=== PATIENT | female | born 1935 | race Caucasian/White ===

== ENCOUNTER → 2017-09-16 | Outpatient (CLI) | payer OTHER ==
[~2017-09-16] MED LIST: ASPEC81 PO; CEPH500C2 PO; CLTP PO; FELO5TAB PO; LISI20TA55 PO; MULT-190 PO; OXYC-292 PO; OXYC-57 PO; PARO1TAB27 PO; POTA20TA16 PO; RIVA1TAB4 PO; SIMV10TA2 PO; TPRSR/50 PO; TPRSR50 PO
[2017-09-16 12:36] LABS: HEMATOCRIT 47.9 % (37-47); HEMOGLOBIN 16.2 g/dL (12.0-16.0); MEAN CELL VOLUME 96.8 fL (80-100); MEAN CORPUSCULAR HEMOGLOBIN 32.7 pg (25-34); MEAN CORPUSCULAR HGB CONC 33.8 g/dl (32-36); MEAN PLATELET VOLUME 10.4 fL (7.4-10.4); PLATELET COUNT 174 K/uL (130-400); RED CELL DISTRIBUTION WIDTH CV 13.3 % (11.5-14.5); RED CELL DISTRIBUTION WIDTH SD 47.1 fL (36.4-46.3)
[2017-09-16 12:54] LABS: INR 1.1 (0.9-1.1); PTT PATIENT 27.3 SECONDS (21.0-31.0)
[2017-09-16 13:00] LABS: BLOOD UREA NITROGEN 10 mg/dl (7-18); CREATININE 0.63 mg/dl (0.60-1.20); GLUCOSE 98 mg/dl (70-99)
[2017-09-16 13:01] LABS: CALCIUM 9.3 mg/dl (8.5-10.1); CARBON DIOXIDE 29 mmol/L (21-32); SODIUM 137 mmol/L (136-145)
== END | disposition home or self-care (01) ==
LOC: C.LABBFT 08:17
PROVIDERS: ATTEND Internal Medicine Cardiovascular Disease
DX: Z01.818 Encounter for other preprocedural examination (principal)

== ENCOUNTER 2017-09-20 11:11 | Day surgery (SDC) | payer OTHER ==
[2017-09-20] VITALS (7 sets, daily range): BP systolic 94–140; BP diastolic 51–97; PULSE 62–82; TEMP 36.6–36.7; O2SAT 95–97; Ht 154.9 cm; Wt 83.9 kg
[~2017-09-20] VITALS: Ht 154.9 cm; Wt 83.9 kg
[~2017-09-20 11:11] MED LIST changes: -CEPH500C2 PO; +LACTATED RINGER'S 1000ML 1,000 ML IV SCH; -RIVA1TAB4 PO; -TPRSR/50 PO; -TPRSR50 PO
[2017-09-20] MEDS ORDERED: TPRSR/50 PO (12:00)
[2017-09-20] MEDS ORDERED: RIVA1TAB4 PO (12:00)
[2017-09-20] MEDS ORDERED: BACITRACIN OINT 0.9 GM PKT ONE (12:33)
[2017-09-20] MEDS ORDERED: BACITRACIN 50000 UNIT VIAL ONE (12:33)
[2017-09-20] MEDS ORDERED: LIDOCAINE HCL 1% 20 ML VIAL ONE (12:33)
--- NOTE | 2017-09-20 13:33 | Pre Sedation Assessment ---
Pre Sedation Assessment General Date of Sedation: Sep 20, 2017. Vital Signs Past 12 Hours Date Time Temp Pulse Resp B/P (MAP) Pulse Ox O2 Delivery O2 Flow Rate FiO2 09/20/17 12:00 36.6 82 20 140/97 (111) 97 Room Air Review Cardiovascular: no murmur, + irregularly irregular Lungs: lungs clear Pre-Sedation Airway Assessment Smoking Status: Never Smoker Hx of Sleep Apnea: No Short Thick Neck: No Oral Cavity: Dentures Mallampati Classification: Class II ASA Classification: Class II NPO Status Date of Last Intake of Fluids: Sep 19, 2017 Time of Last Intake of Fluids: 1700 Date of Last Intake of Solids: Sep 19, 2017 Time of Last Intake of Solids: 1700 Procedure Planning Contraindications for Sedation: None Current Medications Reviewed: Yes Notes The planned sedation has been discussed with the patient. Informed Consent was obtained. I have identified the patient, determined the appropriateness of sedation and have assessed the patient immediately prior to the procedure. All medicine(s) and interventions are by my order.
[2017-09-20] MEDS: CEFAZOLIN 2000MG IV PUSH 15 ML IV SCH ×2 (13:38→14:14)
[2017-09-20] MEDS ORDERED: FENTANYL CITRATE INJ 50 MCG/1 ML 2 ML VIAL ONE (13:39)
[2017-09-20] MEDS ORDERED: MIDAZOLAM HCL 1 MG/ML 2ML VIAL ONE ×2 (13:40→14:13)
--- NOTE | 2017-09-20 14:35 | [facility] Operative Report ---
Operative Report Operative Date Sep 20, 2017. Pre-Operative Diagnosis Pacemaker at [facility] Post-Operative Diagnosis same Procedure(s) Performed Dual-chamber replacement Surgeon Dr. Penny Bag Bundler Surgeon(s) none Estimated Blood Loss 10 cc Findings Good lead measurements, atrial fibrillation Specimens Old pacemaker, return to Medtronic Anesthesia local with sedation Complication(s) None Disposition same day surgery Description of Procedure After obtaining informed consent for the procedure, the patient was brought to the laboratory being NPO after midnight. After identification in the laboratory the patient was prepped and draped in the standard sterile manner for a left- sided device replacement. The left prepectoral region was anesthetized with 1% lidocaine local anesthetic and once adequate anesthesia was obtained a 5 cm incision was made through the old implant scar and carried down to the pacemaker generator. The generator was dissected free of tissue and explanted. A bacitracin-soaked sponge(50,000 units in 50 cc normal saline solution) was placed in the pocket. The pacemaker was removed from the leads and connected to an external pacing system. Pacing and sensing characteristics were evaluated in both the atrial and ventricular leads as noted on the implant data sheet. A new pacemaker was attached to the leads and found to be functioning normally. The bacitracin- soaked sponge was removed from the pocket, the pacemaker was placed in the pocket with the leads coiled beneath it after slightly enlarging the pocket to accommodate the slightly larger device. The incision was closed with a running double subcutaneous closure of 3-0 V-lock absorbable suture followed by a running subcuticular skin closure of 4-0 V lock absorbable suture. The patient tolerated the procedure well, there were no complications and the patient was transferred to the same-day surgery unit for observation and subsequent discharge. I attest to the content of the Intraoperative Record and any orders documented therein. Any exceptions are noted below.
--- NOTE | 2017-09-20 14:37 | Post Sedation Assessment ---
Post Sedation Assessment General Date of Sedation Sep 20, 2017. Vital Signs: Vital Signs Past 12 Hours Date Time Temp Pulse Resp B/P (MAP) Pulse Ox O2 Delivery O2 Flow Rate FiO2 09/20/17 12:00 36.6 82 20 140/97 (111) 97 Room Air Post Procedure Recovery Score Activity: (2) Moves 4 extremities * Respiration: (2) Deep breath/cough Circulation: (2) +/-20% PreAnes Value Consciousness: (2) Fully Awake Oxygen Saturation: (2) > 92% On Room Air Post Anesthesia Score: 10 Discharge Sedation Level of Care: Fast Track Phase II Post Sedation Plan On clinical assessment, the patient appears to have tolerated the sedation without complications. Patient is recovering as anticipated. Patient will continue to be monitored by nursing and may be discharged when sedation discharge criteria are met per below protocol. Upon Completions of procedure and additional 15 minutes continue every 5 minute vital signs and the P.A.R. score; then discharge to a Phase I or Fast Track to Phase II per the following guidelines: * Discharge Patient to appropriate Phase II area if PAR is 8 or greater or return to pre- procedure baseline. The post - procedure orders will be as directed. * If PAR score is less than 8 or not return to pre-procedure baseline then patient will follow Phase I monitoring till PAR is reached for Phase II. The Phase I may be done in procedure room or may call to secure a Phase I area. * If naloxone or flumazenil are used for reversal, hold in Phase I for an additional 60 -120 minutes before discharge to Phase II. Please call the Sedation Physician to re-evaluate and complete post-note for discharge to Phase II area. Do NOT discharge from procedure sedation or Phase 1 until post- sedation evaluation note is complete by procedure /sedation MD Sedation Discharge Instructions to be given to the patient at discharge to home.
[2017-09-20] MEDS ORDERED: ACETAMINOPHEN 325 MG TAB PO PRN (14:45)
[2017-09-20] MEDS ORDERED: KETOROLAC TROMETHAMINE 10 MG TAB PO PRN (14:45)
[2017-09-20] MEDS ORDERED: TPRSR50 PO (14:57)
[2017-09-20] MEDS ORDERED: CEPH500C2 PO (14:57)
--- NOTE | 2017-09-20 15:01 | Discharge Instructions ---
Discharge Instructions Date of Service Sep 20, 2017. Admission Reason for Admission: Elective Replacement Indicator Discharge Discharge Diagnosis / Problem: pacemaker replacement Discharge Goals Goal(s): Improve disease control Activity Recommendations Activity Limitations: resume your previous activity . Instructions / Follow-Up Instructions / Follow-Up ACTIVITY RECOMMENDATIONS: * Do not raise affected arm over head for 2 weeks. SPECIAL CARE INSTRUCTIONS: * If bleeding occurs, apply direct pressure to area for 5 minutes. * Call your doctor if you have severe pain, fever, drainage or bleeding at site. * Keep dressing on and dry. * Keep any scheduled doctor's appointment. * Implant Card - hand held device with website information given. SKIN IRRITATION: * You may experience some redness and/or swelling in the area where radiation was administered. If any skin irritation occurs, please contact your family physician. FOLLOW UP VISIT: Dr. Penny , 09/22/2017 10:30 AM Current Hospital Diet Patient's current hospital diet: AHA Diet (Heart Healthy) Discharge Diet Recommended Diet: AHA Diet (Heart Healthy) Procedures Procedures Performed: Dual chamber pacemaker replacement Pending Studies Studies pending at discharge: no Medical Emergencies . Who to Call and When: Medical Emergencies: If at any time you feel your situation is an emergency, please call 911 immediately. . Non-Emergent Contact Non-Emergency issues call your: Primary Care Provider . . "Provider Documentation" section prepared by Gregorio Penny. . VTE Core Measure Inpt VTE Proph given/why not?: Other Anticoagulation
== END 2017-09-20 17:03 | disposition home or self-care (01) ==
LOC: C.ACU 11:11
PROVIDERS: ATTEND Internal Medicine Cardiovascular Disease
DX: Z45.010 Encounter for checking and testing of cardiac pacemaker pulse generator [battery] (principal); E78.00 Pure hypercholesterolemia, unspecified; E05.90 Thyrotoxicosis, unspecified without thyrotoxic crisis or storm; I48.0 Paroxysmal atrial fibrillation; I49.5 Sick sinus syndrome; Z90.49 Acquired absence of other specified parts of digestive tract; Z86.79 Personal history of other diseases of the circulatory system; Z79.01 Long term (current) use of anticoagulants

== ENCOUNTER 2024-05-07 17:46 | Inpatient (IN) ==
[2024-05-07] MEDS: SODIUM CHLORIDE 0.9% 1,000 ML IV SCH (18:49)
[2024-05-07 19:04] LABS: Basophils # (auto) 0.01 K/uL (0.00-0.20); Basophils % (auto) 0.2 %; Hematocrit (blood only) 38.4 % (37.0-47.0); Immature Granulocytes # (auto) 0.03 K/uL (0.01-0.20); Immature Granulocytes % (auto) 0.5 %; Lymphocytes # (auto) 0.77 K/uL (1.20-3.40); Lymphocytes % (auto) 12.8 %; Mean Corpuscular Hemoglobin 32.8 pg (25.0-34.0); Mean Corpuscular Hgb Conc 33.9 g/dL (32.0-36.0); Mean Platelet Volume 9.9 fL (9.4-12.4); Monocytes # (auto) 0.57 K/uL (0.11-0.59); Monocytes % (auto) 9.5 %; Neutrophils # (auto) 4.62 K/uL (1.40-6.50); Platelet Count 108 K/uL (130-400); RDW Standard Deviation 46.6 fL (36.4-46.3); Red Blood Count 3.96 M/uL (4.20-5.40)
[2024-05-07 19:10] LABS: Albumin Globulin Ratio 1.6 (0.9-2); Albumin Level 3.9 gm/dl (3.4-5.0); Bilirubin,Total 1.1 mg/dl (0.2-1.0); Calcium 9.5 mg/dl (8.6-10.3); Creatinine Clr Calc Pharmacy 63.2 ml/min; Est GFR (African American) 95.1 ml/min; Est GFR (Non-African American) 82.1 ml/min; Globulin 2.5 gm/dl (2.5-4.0); Magnesium 1.5 mg/dl (1.7-2.4); Potassium 3.5 mmol/L (3.5-5.1); Total Protein 6.4 gm/dl (6.0-8.3)
[2024-05-07 19:17] LABS: Troponin I High Sensitivity 15.2 pg/ml (0-14)
[2024-05-07 19:26] LABS: Thyroid Stimulating Hormone 0.676 uIu/ml (0.300-4.500)
[2024-05-07 20:29] LABS: Appearance Urine Slightly Cloudy (Clear); Bilirubin Urine Negative (Negative); Blood Urine 1+ (Negative); Color Urine Yellow; Glucose Urine UA Negative (Negative); Ketones Urine 1+ (Negative); Leukocyte Esterase Urine 1+ (Negative); Nitrite Urine Negative (Negative); Protein Urine Negative (Negative); Specific Gravity Urine >= 1.030 (1.000-1.030); Urobilinogen Urine Negative (Negative)
--- NOTE | 2024-05-07 20:48 | Emergency Department Note ---
Impression & Plan Generalized weakness, Late effects of poliomyelitis, COVID-19, Acute UTI (urinary tract infection) ED Provider Note NAME: ADALI VENTURA AGE: 88 SEX: Female INFORMANT: Patient ED PROVIDER(S): Hermes Johnston MD CHIEF COMPLAINT: Generalized weakness PLAN: Disposition: Admitted Outpatient prescription management: none Referral: None MEDICAL DECISION MAKING: Patient presented because of generalized weakness. 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 She was weak on that side but feels that she is at her baseline now. She did note URI symptoms this weekend. BioFire testing was ordered. Laboratory testing was unremarkable including her CBC and chemistry panel. Patient's ECG showed A-fib without acute ischemia. Patient was rate controlled. The patient's chest x-ray was unremarkable. Her urinalysis was concerning for infection. The patient was given IV Rocephin. The patient had a BioFire test performed and unfortunately she has COVID-19. She is not hypoxic. The patient is hemodynamically stable. Given her generalized weakness and inability to get herself up she will need further management in the hospital. [facility] Sachin Louie. Patient was evaluated in the ER and admitted for further management Care/management discussed with: retail pharmacy manager Level of care consideration(s): After review of the information above and other included data, I feel the patient requires escalation of care to admission Triage Nursing notes: reviewed and agree them. Vital Signs: reviewed and remarkable for no significant abnormalities Additional History obtained from: Patient's daughter. She notes no confusion or slurred speech. Chronic Medical/Social Conditions affecting care: Chronic left lower extremity weakness secondary to polio, A-fib, pacemaker Prior/ Outside/ External records reviewed: none Differential Diagnosis: Infection, dehydration, metabolic abnormality, hypo/hyperglycemia, electrolyte disturbance, anemia, hypoxia, cardiac sources, intracerebral event, toxicologic, neurologic, as well as other pathologies. Diagnostics, independently interpreted by me: ECG: Twelve-lead ECG reveals A-fib with paced beats at [address] No ST elevation. Cardiac Monitoring: Cardiac monitoring ordered by me: The patient was placed on continuous cardiac monitoring and observed. It revealed atrial fibrillation at 72 bpm with paced beats. Medical decision rules: none Imaging studies: Chest x-ray. Findings: A chest x-ray was performed and revealed no pneumothorax, effusion, infiltrate, pulmonary edema, free air under the diaphragm, or wide mediastinum. Cardiac pacemaker in place. Mild cardiomegaly. HPI: 88 year old Female arrives for evaluation of generalized weakness. This started today and is progressing. Daughter is present helps with history. She notes no slurred speech or confusion. Patient became progressively more weak today. She was unable to get up. She fell off the toilet but did not suffer any injury. She does have chronic left lower extremity weakness secondary to polio. The patient also notes the following associated symptoms,chills,cough and congestion over the last 2 days. The patient has found no relieving factors. Current pain is rated as 0/10. Pt denies LOC, headache, fevers, diaphoresis, visual changes, neck pain, chest pain, breathing difficulties, nausea, vomiting, abdominal pain, back pain, melena, hematochezia, urinary symptoms, numbness, lymphadenopathy, rash, or other complaints.. PAST MEDICAL HISTORY: See Below, UTI, polio, A-fib PAST SURGICAL HISTORY: See Below, pacemaker SOCIAL HISTORY: See Below, retired HOME MEDICATIONS: See Below ALLERGIES: See Below VITALS: See Below PHYSICAL EXAMINATION: GENERAL: Awake, alert, well-appearing, in no distress HENT: Normocephalic, atraumatic. Oropharynx unremarkable. EYES: Normal conjunctiva. Sclera non-icteric. PERRLA. EOMI. NECK: Inspection normal. Non-tender. Supple. No nuchal rigidity. FROM. No masses. RESPIRATORY: Clear to auscultation. No wheezes. No rales. Normal respiratory effort. CARDIAC: Normal rate. Irregular rhythm. No murmurs. No rubs. Upper extremities warm and well perfused. The left lower extremity feels cooler to the touch and is mildly cyanotic. There is muscular atrophy present there as well. Daughter states that is normal in appearance for her. Pulses are equal bilaterally in the lower extremities, dorsalis pedis. No JVD. GI: Soft, non-distended. No tenderness to palpation. No rebound or guarding. No masses. RECTAL: Deferred. MUSCULOSKELETAL: Atraumatic. Chest examination reveals no tenderness. The back is symmetrical on inspection without obvious abnormality. There is no CVA tenderness to palpation. No joint edema. LOWER EXTREMITIES: Calves are equal size bilaterally and non-tender. No edema. Chronic venous discoloration as well as some mild cyanosis on the left.. NEURO: Normal sensorium. No sensory or motor deficits noted. SKIN: No rash or jaundice noted. PROCEDURES: none CRITICAL CARE: none OBSERVATION NOTE: none Past Med/Surg History Problem List (Updated 05/07/24 @ 22:28 by Hermes Johnston MD) Acute UTI (urinary tract infection) (Acute) COVID-19 (Acute) Generalized weakness (Acute) Sacroiliitis Presence of cardiac pacemaker Hypertension Dyslipidemia Atrial fibrillation Gastritis (Acute) Gastritis (Acute) Gastritis (Acute) Late effects of poliomyelitis (Chronic Unknown) Vertigo (Acute) Encounter for pre-operative examination Medical History (Updated 05/07/24 @ 22:28 by Hermes Johnston MD) Osteoporosis Hyperlipidemia Polio TODDLER Hearing deficit hearing aids Atrial fibrillation DX [address] penny Pacemaker medtronic 2001 > [facility] > FOR A-FIB, LAST CHECKED fall FOLLOWS WITH [facility] FOR CARDIOLOGY Hypertension Surgical History History of colonoscopy History of tooth extraction History of total hip arthroplasty RIGHT History of total shoulder replacement RIGHT Social History Smoking Status: Never smoker Second Hand Exposure: No; Do You Dip or Chew Tobacco: No; Hx Alcohol Use: No Hx Substance Use: No Preferred Language: Lithuanian Communication Ability: Effective Visual Impairment: No Limitations Audiology Doctor Required: No Beliefs That Will Affect Care: None Current Living Situation: Family Feels Safe at Home: Yes Assistive Devices: Cane, Glasses, Hearing Aid - Bilateral and Walker Allergies Allergies Allergy/AdvReac Type Severity Reaction Status Date / Time No Known Allergies Allergy Verified 09/27/22 11:48 Home Meds Home Medications Medication Instructions Recorded Confirmed alendronate 70 mg tablet 70 mg PO WEEKLY 04/23/19 09/27/22 calcium carbonate (Calcium 600) 600 mg PO BID 07/20/19 09/27/22 paroxetine HCl 20 mg tablet 20 mg PO DAILY 05/28/20 09/27/22 Previous Rx's Medication Instructions Recorded lisinopril 20 1 tab PO QAM #90 tabs 01/19/22 mg-hydrochlorothiazide 25 mg tablet metoprolol succinate 100 mg 100 mg PO QAM #90 tabs 06/27/23 tablet,extended release 24 hr rivaroxaban 20 mg tablet 20 mg PO QAM #90 tabs 12/15/23 simvastatin 10 mg tablet 10 mg PO QAM #90 tabs 12/15/23 potassium chloride 20 mEq 20 meq PO QAM #90 tabs 01/22/24 tablet,extended release Results & Data (ED) Vital Signs Vital Signs - 24 hr 05/07/24 17:54 05/07/24 18:29 05/07/24 20:00 Temperature 37.3 C Temperature Source Oral Pulse Rate 87 87 Pulse Rate [Finger] 73 Respiratory Rate 14 18 Blood Pressure 107/84 Blood Pressure [Right Arm] 132/72 Blood Pressure Mean 91 Blood Pressure Mean [Right Arm] 92 Pulse Oximetry 96 96 Oxygen Delivery Method Room Air Room Air Sepsis Recent Fever Within 48 Hours No Sepsis New/Unexplained Change in Mental Status No Sepsis Action Taken by Nursing No Action Required Laboratory Data 05/07/24 18:22 05/07/24 18:22 Lab Results 05/07/24 05/07/24 Range/Units 18:22 20:15 WBC 6.00 (4.8-10.8) K/ul RBC 3.96 L (4.20-5.40) M/uL Hgb 13.0 (12.0-16.0) g/dl Hct 38.4 (37.0-47.0) % MCV 97.0 (80.0-100.0) fL MCH 32.8 (25.0-34.0) pg MCHC 33.9 (32.0-36.0) g/dL RDW Std Deviation 46.6 H (36.4-46.3) fL RDW Coeff of Anibal 13.0 (11.5-14.5) % Plt Count 108 L (130-400) K/uL MPV 9.9 (9.4-12.4) fL Immature Gran % (Auto) 0.5 % Neut % (Auto) 77.0 % Lymph % (Auto) 12.8 % [place] % (Auto) 9.5 % Eos % (Auto) 0.0 % Baso % (Auto) 0.2 % Neut # (Auto) 4.62 (1.40-6.50) K/uL Lymph # (Auto) 0.77 L (1.20-3.40) K/uL [place] # (Auto) 0.57 (0.11-0.59) K/uL Eos # (Auto) 0.00 (0.00-0.50) K/uL Baso # (Auto) 0.01 (0.00-0.20) K/uL Immature Gran # (Auto) 0.03 (0.01-0.20) K/uL Sodium 139 (136-145) mmol/L Potassium 3.5 (3.5-5.1) mmol/L Chloride 102 (98-107) mmol/L Carbon Dioxide 27 (21-32) mmol/L Anion Gap 10 (3-11) BUN 25 H (6-23) mg/dl Creatinine 0.61 (0.6-1.2) mg/dl Est Cr Clr Drug Dosing 63.2 ml/min Est GFR ( Amer) 95.1 ml/min Est GFR (Non-Af Amer) 82.1 ml/min BUN/Creatinine Ratio 41.0 H (10-20) Glucose 121 H (70-99(Fasting)) mg/dl Calcium 9.5 (8.6-10.3) mg/dl Magnesium 1.5 L (1.7-2.4) mg/dl Total Bilirubin 1.1 H (0.2-1.0) mg/dl AST 38 (13-39) U/L ALT 19 (7-52) U/L Alkaline Phosphatase 41 (34-104) U/L Troponin I High Sens 15.2 H (0-14) pg/ml Total Protein 6.4 (6.0-8.3) gm/dl Albumin 3.9 (3.4-5.0) gm/dl Globulin 2.5 (2.5-4.0) gm/dl Albumin/Globulin Ratio 1.6 (0.9-2) TSH 0.676 (0.300-4.500) uIu/ml Urine Color Yellow Urine Appearance Slightly Cloudy (Clear) Urine pH 6.0 (4.5-7.5) Ur Specific [place] >= 1.030 (1.000-1.030) Urine Protein Negative (Negative) Urine Glucose (UA) Negative (Negative) Urine Ketones 1+ H (Negative) Urine Blood 1+ H (Negative) Urine Nitrite Negative (Negative) Urine Bilirubin Negative (Negative) Urine Urobilinogen Negative (Negative) Ur Leukocyte Esterase 1+ H (Negative) Urine RBC 0-2 (0-2) /hpf Urine WBC 6-10 H (0-5) /hpf Ur Epithelial Cells 0-2 (0-2) /hpf Ur Renal Epithelial Cell Present A (None Presnt) /lpf Urine Bacteria 2+ H (None Seen) Adenovirus (PCR) Not Detected (NotDetected) B. pertussis DNA (PCR) Not Detected (NotDetected) B.parapertussis DNA PCR Not Detected (NotDetected) C. pneumoniae DNA (PCR) Not Detected (NotDetected) Coronavirus OC43 (PCR) Not Detected (NotDetected) Coronavirus HKU1 (PCR) Not Detected (NotDetected) Coronavirus 229E (PCR) Not Detected (NotDetected) SARS-CoV-2 (PCR) DETECTED A (NotDetected) Coronavirus NL63 (PCR) Not Detected (NotDetected) Human Metapneumovir PCR Not Detected (NotDetected) Influenza Type A (PCR) Not Detected (NotDetected) Influenza Type B (PCR) Not Detected (NotDetected) M. pneumoniae (PCR) Not Detected (NotDetected) Parainfluenza 1 (PCR) Not Detected (NotDetected) Parainfluenza 2 (PCR) Not Detected (NotDetected) Parainfluenza 3 (PCR) Not Detected (NotDetected) Parainfluenza 4 (PCR) Not Detected (NotDetected) RSV (PCR) Not Detected (NotDetected) Entero/Rhino (PCR) Not Detected (NotDetected) Administered Medications Discontinued Medications Sodium Chloride (Nss) 1,000 mls @ 125 mls/hr IV .Q8H SHANTA Stop: 05/08/24 02:44 Last Admin: 05/07/24 18:49 Dose: 125 mls/hr Documented By: LUCIE Ceftriaxone Sodium (Rocephin) 2,000 mg in 50 mls @ 100 mls/hr IV NOW STA Stop: 05/07/24 21:49 Last Infusion: 05/07/24 22:07 Dose: Infused Documented By: Admin: 05/07/24 21:34 Dose: 100 mls/hr Documented By: LUCIE Discharge Plan Visit Data Chief Complaint: Weakness ED Provider: Hermes Johnston Discharge Problem: Generalized weakness, Late effects of poliomyelitis, COVID-19, Acute UTI (urinary tract infection) Forms Stand Alone Forms: [facility] Prescriptions Prescriptions: No Action lisinopril-hydrochlorothiazide 20-25 mg tablet 1 tab PO QAM Qty: 90 3RF metoprolol succinate 100 mg tablet extended release 24 hr 100 mg PO QAM Qty: 90 3RF rivaroxaban 20 mg tablet 20 mg PO QAM Qty: 90 3RF simvastatin 10 mg tablet 10 mg PO QAM Qty: 90 3RF potassium chloride 20 mEq tablet extended release 20 meq PO QAM Qty: 90 3RF alendronate 70 mg tablet 70 mg PO WEEKLY Rx Instructions: TUESDAY paroxetine HCl 20 mg tablet 20 mg PO DAILY calcium carbonate [Calcium 600] 600 mg calcium (1,500 mg) Tablet 600 mg PO BID Referrals Referrals: Gisella Quezada DO [Primary Care Provider] -
[2024-05-07 21:12] LABS: Adenovirus PCR Not Detected (NotDetected); Bordetella parapertussis PCR Not Detected (NotDetected); Bordetella pertussis PCR Not Detected (NotDetected); Chlamydia pneumoniae PCR Not Detected (NotDetected); Coronavirus 229E PCR Not Detected (NotDetected); Coronavirus CoV-2 (COVID19)PCR DETECTED (NotDetected); Coronavirus HKU1 PCR Not Detected (NotDetected); Coronavirus NL63 PCR Not Detected (NotDetected); Coronavirus OC43PCR Not Detected (NotDetected); Human Metapneumovirus PCR Not Detected (NotDetected); Influenza A PCR Not Detected (NotDetected); Influenza B PCR Not Detected (NotDetected); Mycoplasma pneumoniae PCR Not Detected (NotDetected); Parainfluenza Virus 1 PCR Not Detected (NotDetected); Parainfluenza Virus 2 PCR Not Detected (NotDetected); Parainfluenza Virus 3 PCR Not Detected (NotDetected); Parainfluenza Virus 4 PCR Not Detected (NotDetected); Respiratory Syncytial VirusPCR Not Detected (NotDetected); Rhinovirus/Enterovirus PCR Not Detected (NotDetected)
[2024-05-07 21:16] LABS: Epithelial Cell Urine 0-2 /hpf (0-2)
[2024-05-07 21:17] LABS: Renal Epithelial Cells Urine Present /lpf (None Presnt)
[2024-05-07 21:18] LABS: Bacteria Urine 2+ (None Seen); RBC Urine 0-2 /hpf (0-2)
[2024-05-07] MEDS: cefTRIAXone SODIUM 2,000 MG/50 ML BAG IV STA (21:34)
[2024-05-07] MEDS: MAGNESIUM SULFATE / D5W 1 GM/100 ML BAG IV SCH (22:39)
[2024-05-07] MEDS: SODIUM CHLORIDE 0.9% 1,000 ML IV ONE (22:40)
--- NOTE | 2024-05-07 23:07 | History & Physical Report ---
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 ISS BG goal 1 10-1 40, carb count coverage PT OT eval DVT prophylaxis. Xarelto DNR Text document was generated using [employer] [place] voice recognition software. It may contain grammatical or spelling errors. Kindly contact undersigned for clarification of any documentation item in question. History of Present Illness Chief Complaint: Weakness Primary Care Provider: Gisella Quezada DO History obtained from patient and records. Medical history significant for SSS status post PPM on Xarelto, hypertension, hyperlipidemia, DM2 on oral medications, melanoma as per records, anxiety disorder, postpolio syndrome. Last confinement 2009 under Orthopedics service for elective right hip surgery. Patient seen at the ER 2 weeks ago for left foot cellulitis. Improved on doxycycline Rx. Few days history of generalized weakness. Dry cough symptoms without chest pain or SOB. No abdominal pain or dysuria symptoms. Not sure about sick contacts. IV ceftriaxone administered at the ER for UTI. Lowest SBP of 90s documented at the ER. Medical History as above Surgical History : Dental surgery, hip surgery, shoulder surgery, PPM, FUENTES Family History : Liver cancer, DM, heart disease Personal/Social history : Non-smoker, no EtOH intake Allergies Allergy/AdvReac Type Severity Reaction Status Date / Time No Known Allergies Allergy Verified 09/27/22 11:48 Home Medications Medication Instructions Recorded Confirmed Type alendronate 70 mg tablet 70 mg PO WEEKLY 04/23/19 05/07/24 History calcium carbonate (Calcium 600) 600 mg PO BID 07/20/19 05/07/24 History paroxetine HCl 20 mg tablet 20 mg PO DAILY 05/28/20 05/07/24 History lisinopril 20 1 tab PO QAM #90 tabs 01/19/22 05/07/24 Rx mg-hydrochlorothiazide 25 mg tablet metoprolol succinate 100 mg 100 mg PO QAM #90 tabs 06/27/23 05/07/24 Rx tablet,extended release 24 hr rivaroxaban 20 mg tablet 20 mg PO QAM #90 tabs 12/15/23 05/07/24 Rx potassium chloride 20 mEq 20 meq PO QAM #90 tabs 01/22/24 05/07/24 Rx tablet,extended release simvastatin 10 mg tablet 10 mg PO 1XD 05/07/24 05/07/24 History Past Med/Surg History Problem List (Updated 05/08/24 @ 07:38 by Sachin Louie MD) Hypotension Acute UTI (urinary tract infection) (Acute) COVID-19 (Acute) Generalized weakness (Acute) Sacroiliitis Presence of cardiac pacemaker Hypertension Dyslipidemia Atrial fibrillation Gastritis (Acute) Gastritis (Acute) Gastritis (Acute) Late effects of poliomyelitis (Chronic Unknown) Vertigo (Acute) Encounter for pre-operative examination Medical History (Updated 05/08/24 @ 07:38 by Sachin Louie MD) Osteoporosis Hyperlipidemia Polio TODDLER Hearing deficit hearing aids Atrial fibrillation DX [address] penny Pacemaker medtronic 2001 > [facility] > FOR A-FIB, LAST CHECKED fall FOLLOWS WITH [facility] FOR CARDIOLOGY Hypertension Surgical History History of colonoscopy History of tooth extraction History of total hip arthroplasty RIGHT History of total shoulder replacement RIGHT Social History Smoking Status: Never smoker Second Hand Exposure: No; Do You Dip or Chew Tobacco: No; Hx Alcohol Use: No Hx Substance Use: No Preferred Language: Chinese Communication Ability: Effective Visual Impairment: No Limitations Career Development Director Required: No Beliefs That Will Affect Care: None Current Living Situation: Family Feels Safe at Home: Yes Safety Concerns: Feels Safe At This Time Assistive Devices: Cane, Glasses, Hearing Aid - Bilateral and Walker Review of Systems Review of Systems: As per HPI, all other systems reviewed and negative Physical Exam Physical Exam: GENERAL: Comfortable, pleasant, obese, slightly hard of hearing, no respiratory distress SKIN: Normal color, warm HEENT: [place] palpebral conjunctivae, no ptosis, dry buccal mucosa NECK : Supple, no tenderness CHEST : CTA, no tenderness HEART : Irregular, no obvious murmurs ABDOMEN: Some distention, nontender EXTREMITIES : Minimal LE swelling, no LE tenderness, no other conspicuous deformities noted NEUROLOGIC : Coherent, no facial asymmetry, slightly hard of hearing, gait and stance not assessed Results & Data Results & Data Vital Signs (Past 12 Hours) Vital Signs Temp Pulse Pulse Resp BP BP Pulse Ox 05/07/24 22:26 71 05/07/24 22:00 78 18 102/54 L 96 05/07/24 20:00 73 18 132/72 96 05/07/24 18:29 87 05/07/24 17:54 37.3 C 87 14 107/84 96 O2 Del Method 05/07/24 22:26 05/07/24 22:00 Room Air 05/07/24 20:00 Room Air 05/07/24 18:29 05/07/24 17:54 Room Air Laboratory Results Laboratory Results WBC 6.00 K/ul (4.8-10.8) 05/07/24 18:22 RBC 3.96 M/uL (4.20-5.40) L 05/07/24 18:22 Hgb 13.0 g/dl (12.0-16.0) 05/07/24 18:22 Hct 38.4 % (37.0-47.0) 05/07/24 18:22 MCV 97.0 fL (80.0-100.0) 05/07/24 18:22 MCH 32.8 pg (25.0-34.0) 05/07/24 18:22 MCHC 33.9 g/dL (32.0-36.0) 05/07/24 18:22 RDW Std Deviation 46.6 fL (36.4-46.3) H 05/07/24 18:22 RDW Coeff of Anibal 13.0 % (11.5-14.5) 05/07/24 18:22 Plt Count 108 K/uL (130-400) L 05/07/24 18:22 MPV 9.9 fL (9.4-12.4) 05/07/24 18:22 Immature Gran % (Auto) 0.5 % 05/07/24 18:22 Neut % (Auto) 77.0 % 05/07/24 18:22 Lymph % (Auto) 12.8 % 05/07/24 18:22 [place] % (Auto) 9.5 % 05/07/24 18:22 Eos % (Auto) 0.0 % 05/07/24 18:22 Baso % (Auto) 0.2 % 05/07/24 18:22 Neut # (Auto) 4.62 K/uL (1.40-6.50) 05/07/24 18:22 Lymph # (Auto) 0.77 K/uL (1.20-3.40) L 05/07/24 18:22 [place] # (Auto) 0.57 K/uL (0.11-0.59) 05/07/24 18:22 Eos # (Auto) 0.00 K/uL (0.00-0.50) 05/07/24 18:22 Baso # (Auto) 0.01 K/uL (0.00-0.20) 05/07/24 18:22 Immature Gran # (Auto) 0.03 K/uL (0.01-0.20) 05/07/24 18:22 Sodium 139 mmol/L (136-145) 05/07/24 18:22 Potassium 3.5 mmol/L (3.5-5.1) 05/07/24 18:22 Chloride 102 mmol/L (98-107) 05/07/24 18:22 Carbon Dioxide 27 mmol/L (21-32) 05/07/24 18:22 Anion Gap 10 (3-11) 05/07/24 18:22 BUN 25 mg/dl (6-23) H 05/07/24 18:22 Creatinine 0.61 mg/dl (0.6-1.2) 05/07/24 18:22 Est Cr Clr Drug Dosing 63.2 ml/min 05/07/24 18:22 Est GFR ( Amer) 95.1 ml/min 05/07/24 18:22 Est GFR (Non-Af Amer) 82.1 ml/min 05/07/24 18:22 BUN/Creatinine Ratio 41.0 (10-20) H 05/07/24 18:22 Glucose 121 mg/dl (70-99(Fasting)) H 05/07/24 18:22 Calcium 9.5 mg/dl (8.6-10.3) 05/07/24 18:22 Magnesium 1.5 mg/dl (1.7-2.4) L 05/07/24 18:22 Total Bilirubin 1.1 mg/dl (0.2-1.0) H 05/07/24 18:22 AST 38 U/L (13-39) 05/07/24 18:22 ALT 19 U/L (7-52) 05/07/24 18:22 Alkaline Phosphatase 41 U/L (34-104) 05/07/24 18:22 Troponin I High Sens 15.2 pg/ml (0-14) H 05/07/24 18:22 Total Protein 6.4 gm/dl (6.0-8.3) 05/07/24 18:22 Albumin 3.9 gm/dl (3.4-5.0) 05/07/24 18:22 Globulin 2.5 gm/dl (2.5-4.0) 05/07/24 18:22 Albumin/Globulin Ratio 1.6 (0.9-2) 05/07/24 18:22 TSH 0.676 uIu/ml (0.300-4.500) 05/07/24 18:22 Urine Color Yellow 05/07/24 20:15 Urine Appearance Slightly Cloudy (Clear) 05/07/24 20:15 Urine pH 6.0 (4.5-7.5) 05/07/24 20:15 Ur Specific [place] >= 1.030 (1.000-1.030) 05/07/24 20:15 Urine Protein Negative (Negative) 05/07/24 20:15 Urine Glucose (UA) Negative (Negative) 05/07/24 20:15 Urine Ketones 1+ (Negative) H 05/07/24 20:15 Urine Blood 1+ (Negative) H 05/07/24 20:15 Urine Nitrite Negative (Negative) 05/07/24 20:15 Urine Bilirubin Negative (Negative) 05/07/24 20:15 Urine Urobilinogen Negative (Negative) 05/07/24 20:15 Ur Leukocyte Esterase 1+ (Negative) H 05/07/24 20:15 Urine RBC 0-2 /hpf (0-2) 05/07/24 20:15 Urine WBC 6-10 /hpf (0-5) H 05/07/24 20:15 Ur Epithelial Cells 0-2 /hpf (0-2) 05/07/24 20:15 Ur Renal Epithelial Cell Present /lpf (None Presnt) A 05/07/24 20:15 Urine Bacteria 2+ (None Seen) H 05/07/24 20:15 Adenovirus (PCR) Not Detected (NotDetected) 05/07/24 20:15 B. pertussis DNA (PCR) Not Detected (NotDetected) 05/07/24 20:15 B.parapertussis DNA PCR Not Detected (NotDetected) 05/07/24 20:15 C. pneumoniae DNA (PCR) Not Detected (NotDetected) 05/07/24 20:15 Coronavirus OC43 (PCR) Not Detected (NotDetected) 05/07/24 20:15 Coronavirus HKU1 (PCR) Not Detected (NotDetected) 05/07/24 20:15 Coronavirus 229E (PCR) Not Detected (NotDetected) 05/07/24 20:15 SARS-CoV-2 (PCR) DETECTED (NotDetected) A 05/07/24 20:15 Coronavirus NL63 (PCR) Not Detected (NotDetected) 05/07/24 20:15 Human Metapneumovir PCR Not Detected (NotDetected) 05/07/24 20:15 Influenza Type A (PCR) Not Detected (NotDetected) 05/07/24 20:15 Influenza Type B (PCR) Not Detected (NotDetected) 05/07/24 20:15 M. pneumoniae (PCR) Not Detected (NotDetected) 05/07/24 20:15 Parainfluenza 1 (PCR) Not Detected (NotDetected) 05/07/24 20:15 Parainfluenza 2 (PCR) Not Detected (NotDetected) 05/07/24 20:15 Parainfluenza 3 (PCR) Not Detected (NotDetected) 05/07/24 20:15 Parainfluenza 4 (PCR) Not Detected (NotDetected) 05/07/24 20:15 RSV (PCR) Not Detected (NotDetected) 05/07/24 20:15 Entero/Rhino (PCR) Not Detected (NotDetected) 05/07/24 20:15 Diagnostic Findings Chest x-ray as per my interpretation cardiomegaly, atelectasis EKG as per my interpretation : Rate 75, A-fib, LAD, LAFB, septal infarct, nonspecific T wave abnormalities, PVCs
[2024-05-07] MEDS ORDERED: PROMETHAZINE 6.25 MG/50.25 ML BAG IV PRN (23:10)
[2024-05-08] MEDS ORDERED: GLUCOSE 10 TAB/TUBE PO PRN (00:21)
[2024-05-08] MEDS ORDERED: GLUCOSE 40% GEL 15 GM TUBE PO PRN (00:21)
[2024-05-08] MEDS ORDERED: DEXTROSE 50% 50 ML SYRINGE IV PRN (00:21)
[2024-05-08] MEDS ORDERED: GLUCAGON FOR INJ 1 MG VIAL SQ PRN (00:21)
[2024-05-08] MEDS ORDERED: CARBOHYDRATES FOR HYPOGLYCEMIA PO PRN (00:21)
[2024-05-08] MEDS: INSULIN ASPART PER UNIT CHARGE SC SCH (00:45)
[2024-05-08] MEDS: NSS + 20MEQ KCL 20 MEQ/1,000 ML BAG IV ONE (04:08)
--- OUTSIDE RECORDS SUMMARY | 2024-05-08 04:46 | External Medical Summary | Summary of Care ---
Author Name Unknown Organization [facility] Address [address] [place] [address] Phone [phone] Care Team Providers Care Home Agent Name Role Phone MahadGisella martinez Jeremiah QUEEN Primary Care Provider [phone] Reason for Visit * Reason Onset Date Comments MyCode Nonconsent - Not interested at this time 04/30/2024 Encounter Details Date Type Department Care Team (Late st Contact Info) Description 04/30/2024 Orders Only Outcomes Research Department [address] [place] [address] Katherin Wallace CHRA MyCode Nonconsent Documentation Allergies No known active allergiesdocumented as of this encounter (statuses as of 04/30/2024) Medications Medication Sig Dispensed Refills Start Date End Date Status CALCIUM 600 TABS 600 MG OR 1 bid with food 06/09/2001 Active PRINZIDE TABS 20-25 MG OR 1 daily 06/09/2001 Active SIMVASTATIN 10 MG PO TABSIndications:Dysl ipidemia, goal LDL below 160 one tab by mouth daily 90 3 03/27/2007 Active XARELTO 20 MG PO TABS 1 TABLET DAILY 30 Tab 5 12/14/2013 Active KLOR-CON M20 20 MEQ TBCR 07/27/2015 Active metoprolol succinate XL (TOPROL XL) 100 MG TB24 Take 1 Tablet by mouth in the morning. Active Sennosides-Docusate Sodium 8.6-50 MG Oral Tablet (Senexon-S) Take one to two tablets twice daily as needed 180 Tab 06/11/2021 Active PARoxetine HCl 20 MG Oral Tablet (pAXil)Indications:A nxiety Take 1 Tablet by mouth in the morning. 90 Tablet 3 07/08/2023 Active Lisinopril-hydroCHLO ROthiazide 20-25 MG Oral Tablet Take 1 Tablet by mouth in the morning. in the morning.. 90 Tablet 5 07/30/2023 Active Alendronate Sodium 70 MG Oral Tablet (Fosamax)Indications :Age related osteoporosis, unspecified pathological fracture presence TAKE 1 TABLET ONCE WEEKLY WITH 8 OUNCES OF WATER 30 MINUTES BEFORE FIRST MEAL OF THE DAY. REMAIN UPRIGHT FOR 30 MINUTES AFTER TAKING TABLET 12 Tablet 1 03/04/2024 Active Doxycycline Hyclate 100 MG Oral CapsuleIndications:S pider bite wound, accidental or unintentional, sequela Take 1 Capsule by mouth in the morning and 1 Capsule before bedtime. Do all this for 7 days. Until gone.. 14 Capsule 04/30/2024 05/07/2024 Active documented as of this encounter (statuses as of 04/30/2024) Active Problems Problem Noted Date Diagnosed Date Type 2 diabetes mellitus wit h hemoglobin A1c goal of less than 7.0% 07/08/2023 Osteoporosis 07/08/2023 Anxiety 07/08/2023 Polio osteopathy of lower leg, left 07/08/2023 Permanent atrial fibrillation 07/08/2023 History of colon polyps 11/01/2018 HTN, GOAL BELOW 140/90 06/30/2009 Overview: Modified per HTN protocol #16. ADVANCE DIRECTIVE INFORMATION 08/19/2006 Overview: Information offered-patient declined Dyslipidemia, goal to be determined 12/25/2004 Postmenopausal atrophic vaginitis 08/30/2002 Need for prophylactic hormon e replacement therapy (postmenopausal) Pacemaker documented as of this encounter (statuses as of 04/30/2024) Resolved Problems Problem Noted Date Diagnosed Date Resolved Date Poliomyelitis osteopathy of multiple sites 07/08/2023 07/08/2023 Paroxysmal A-fib 07/08/2023 07/08/2023 Benign neoplasm of colon 02/10/2007 Overview: repeat colonoscopy in 3 years CHOLELITH W CHOLECYS NEC 11/05/200307/2007 HYPERTENSION NOS 06/30/2009 Overview: Modified per HTN protocol #16. documented as of this encounter (statuses as of 04/30/2024) Immunizations Name Administration Dates Next Due COVID-19 mRNA, LNP-s, No Pre serve, 2-Dose Series (Pfizer) 10/17/2020,09/26/2020 Pneumococcal Conjugate Vacc, 13 Valent (Prevnar) 07/28/2015 Season Influenza, Quad, PF, Adjuvanted, 65+ Yrs, IM (FLUAD) 05/27/2020 Seasonal Influenza, High Dos e, Trivalent, PF, IM (Fluzone HD) 04/30/2024 Seasonal Influenza, Quadriva lent Hd (Fluzone Hd) 06/12/2022,05/11/2021 Seasonal Influenza, Quadriva lent, No Preserve, IM 06/08/2019,06/02/2017,06/05/2015 Seasonal Influenza, Trivalen t, (IIV3), with Preserv, (Fluzone) 06/21/2014,07/12/2013,06/21/2011,2009,06/24/2009,05/25/2006 Seasonal Influenza, Trivalen t, Adjuvanted, 65+ YRS, PF, (Fluad) 05/24/2018 TD, Preservative Free 11/08/2008 TDAP (age 10 and older)(Boostrix) 11/14/2018 Varicella Zoster Vaccine (Adult) 12/06/2011 documented as of this encounter Social History Tobacco Use Types Packs/Day Years Used Date Smoking Tobacco: Never Smokeless Tobacco: Never Alcohol Use Standard Drinks/Week Comments No 0 (1 standard drink = 0.6 oz pur e alcohol) PHQ-2 Answer Date Recorded PHQ-2 Score 0 08/07/2019 Sex and Gender Information Value Date Recorded Sex Assigned at Not on file Gender Identity Not on file Sexual Orientation Straight 05/11/2021 12 :55 PM EDT Job Start Date Occupation Industry Not on file Not on file Not on file documented as of this encounter Progress Notes * Katherin Wallace CHRA - 04/30/2024 1:49 PM EDT MyCode Nonconsent Documentation Sherin Camacho was approached in the clinic regarding participation in the MyCode Project and did not consent. documented in this encounter Plan of Treatment Upcoming Encounters Date Type Department Care Team (Late st Contact Info) Description 07/09/2024 9:10 AM EST Office Visit [facility] [place] [address] [id number] Gisella Quezada [facility] [address] [facility] [address] 07/16/2024 8:30 AM EST Imaging Radiology, [address], [place] [address] Health Maintenance Due Date Last Done Comments Albumin/Creatinine Ratio 1953 Diabetic Foot Exam 1953 Zoster Vaccines (2 of 3) 01/31/2012 12/06/2011 Colonoscopy 02/24/2016 02/23/2011, 02/10/2007 Adult Wellness Visit 05/02/2018 05/02/2017 DXA Scan 09/13/2019 09/13/2017, 09/09, 10/04/2011, Additional history exists Depression Screening 08/07/2020 08/07/2019 HbA1c 01/07/2024 07/08/2023, 06/08, 11/20/2008, Additional history exists COVID-19 Vaccine (3 - season) 2024 10/17/2020, 09/26/2020 Diabetic Eye Exam 07/08/2024 07/08/2023 DTap/Tdap Vaccines (2 - Td or Tdap) 11/14/2028 11/14/2018, 11/08/2008 VITAMIN D LEVEL ONCE IN A LIFETIME-USE SMARTSET# [id number] Completed 11/20/2008 RETIRED - COLONOSCOPY-EVERY 5 YRS AGES 18-100 Discontinued 02/23/2011, 02/23/2011, 02/10/2007 Pneumococcal Vaccine: 65+ Years Completed 07/28/2015, 08/30/2002 Influenza Vaccine (FLU shot) Completed 04/30/2024, 06/12/2022, 05/11/2021, Additional history exists HPV (Gardasil) Vaccine Aged Out No lo nger eligible based on patient's age to complete this topic Hepatitis B Vaccine Aged Out No longe r eligible based on patient's age to complete this topic MENINGOCOCCAL (MENACTRA/MENVEO) Aged Out No longer eligible based on patient's age to complete this topic documented as of this encounter Medical Devices Not on filedocumented as of this encounter Care Teams Home Agent Relationship Specialty Start Date End Date Gisella Quezada DO [address] [place] [address] PCP - General Family Medicine 08/07/19 documented as of this encounter
--- OUTSIDE RECORDS SUMMARY | 2024-05-08 04:46 | External Medical Summary | Summary of Care ---
Author Name Unknown Organization [facility] Address [address] [place] [address] Phone [phone] Care Team Providers Care Storage Architect Name Role Phone MahadGisella martinez Jeremiah QUEEN Primary Care Provider [phone] Reason for Visit * Reason Comments Outpatient Testing Encounter Details Date Type Department Care Team (Late st Contact Info) Description 04/30/2024 1:40 PM EDT Laboratory Laboratory, [place] [address] [place] [address] [place], Laboratory [address] [place] [address] Type 2 diabetes mellitus with hemoglobin A1c goal of less than 7.0% ([facility]) Allergies No known active allergiesdocumented as of [...] on file documented as of this encounter Plan of Treatment Upcoming Encounters Date Type Department Care Team (Late st Contact Info) Description 07/09/2024 9:10 AM EST Office Visit [facility] [address] [place] [address] Gisella Quezada DO [address] [place] [address] 07/16/2024 8:30 AM EST Imaging Radiology, [address], [place] [address] Pending Results Name Type Priority Associated Diagnoses Date /Time HEMOGLOBIN A1C Lab Routine Type 2 diabetes mellitus with hemoglobin A1c goal of less than 7.0% ([facility]) 04/30/2024 1:49 PM EDT BASIC METABOLIC PANEL Lab Routine Type 2 diabetes mellitus with hemoglobin A1c goal of less than 7.0% ([facility]) 04/30/2024 1:49 PM EDT LIPID PANEL WITH DIRECT LDL IF TG IS HIGH Lab Routine Type 2 diabetes mellitus with hemoglobin A1c goal of less than 7.0% ([facility]) 04/30/2024 1:49 PM EDT Health Maintenance Due Date Last Done Comments Albumin/Creatinine Ratio 1955 Diabetic Foot Exam 1955 Zoster Vaccines (2 of 3) 01/31/2012 12/06/2011 Colonoscopy 02/24/2016 02/23/2011, 02/10/2007 Adult Wellness Visit 05/02/2018 05/02/2017 DXA Scan 09/13/2019 09/13/2017, 09/09, 10/04/2011, Additional history exists Depression Screening 08/07/2020 08/07/2019 HbA1c 01/07/2024 07/08/2023, 06/08, 11/20/2008, Additional history exists COVID-19 Vaccine ( season) 2024 10/17/2020, 09/26/2020 Diabetic Eye Exam 07/08/2024 07/08/2023 DTap/Tdap Vaccines (2 - Td or Tdap) 11/14/2028 11/14/2018, 11/08/2008 VITAMIN D LEVEL ONCE IN A LIFETIME-USE SMARTSET# [id number] Completed 11/20/2008 RETIRED - COLONOSCOPY-EVERY 5 YRS [...] Not on filedocumented as of this encounter Visit Diagnoses Diagnosis Type 2 diabetes mellitus with hemoglobin A1c goal of less than 7.0% (HCC) documented in this encounter Care Teams Storage Architect Relationship Specialty Start Date End Date Gisella Quezada DO [address] [place] [address] PCP - General Family Medicine 08/07/19 documented as of this encounter
--- OUTSIDE RECORDS SUMMARY | 2024-05-08 04:47 | External Medical Summary ---
Author Name Unknown Address Unknown Organization [id number]:[facility]ATORY [facility] - [address] [place] [address] Laboratory Report Ordering Provider Test Date Status GUILLERMO RAJPUT 04/30/2024 13:49:07 Final Observation Date Value Abnormality Reference (Units ) Status Triglyceride 04/30/2024 13:49:07 127 <=174 ( mg/dL) Final Triglyceride Reference Range s (mg/dL):
<150 Acceptable
150-174 Borderline high
175-499 High
>=500 Very high Cholesterol 04/30/2024 13:49:07 123 <200 (mg /dL) Final Total Cholesterol Reference Ranges (mg/dL):
<200 Desirable
200-239 Borderline high
>=240 High HDL 04/30/2024 13:49:07 59 >49 (mg/dL ) Final HDL Cholesterol Reference Ra nges (mg/dL):
>=60 High (Desirable)
<50 Low (Undesirable) For Females
<40 Low (Undesirable) For Males NON-HDL CHOLESTEROL 04/30/2024 13:49:07 64 <=159 (mg/dL) Final Non-HDL Cholesterol Referenc e Range (mg/dL):
<100 Target level for high risk ASCVD patient
<130 Optimal for general population
130-159 Near optimal for general population
160-189 Borderline High
190-219 High
>=220 Very High LDL, (calculated) 04/30/2024 13:49:07 39 <= 129 (mg/dL) Final LDL Cholesterol Reference Ra nges (mg/dL):
<70 Target level for high risk ASCVD patient
<100 Optimal for general population
100-129 Near optimal for general population
130-159 Borderline high
160-189 High
>=190 Very high Performing Location LABORATORY [facility] - [address] [facility] [address]
--- OUTSIDE RECORDS SUMMARY | 2024-05-08 04:47 | External Medical Summary | Summary of Care ---
Author Name Unknown Organization [facility] Address [address] [place] [address] Phone [phone] Care Team Providers Care Instrumentation Technologist Name Role Phone Gisella Quezada DO Primary Care Provider [phone] Reason for Visit * Reason Onset Date Comments Hospital Follow-Up Pt states robert t she is here for ER follow up Medication Administration 04/30/2024 Flu an d/or Pneumo Inj Encounter Details Date Type Department Care Team (Late st Contact Info) Description 04/30/2024 12:50 PM EDT Office Visit [facility] [address] [place] [address] Gisella Quezada, [address] [place] [address] Type 2 diabetes mellitus with hemoglobin A1c goal of less than 7.0% (HCC)*; Polio osteopathy of lower leg, left (HCC); Permanent atrial fibrillation (HCC); Spider bite wound, accidental or unintentional, sequela; Need for influenza vaccination; Need for prophylactic vaccination and inoculation against influenza Allergies No known active allergiesdocumented as of [...] mRNA, LNP-s, No Pre serve, 2-Dose Series ([employer]) 10/17/2020,09/26/2020 Pneumococcal Conjugate Vacc, 13 Valent (Prevnar) 07/28/2015 Pneumococcal Polysaccharide PPV23 (Pneumovax) 08/30/2002 Season Influenza, Quad, PF, Adjuvanted, 65+ Yrs, IM (FLUAD) 05/27/2020 Seasonal Influenza, High Dos e, Trivalent, PF, IM (Fluzone HD) 04/30/2024 Seasonal Influenza, Quadriva lent Hd (Fluzone Hd) 06/12/2022,05/11/2021 Seasonal Influenza, Quadriva lent, No Preserve, IM 06/08/2019,06/02/2017,06/05/2015 Seasonal Influenza, Trivalen t, (IIV3), with Preserv, (Fluzone) 06/21/2014,07/12/2013,06/21/2011,06/11,06/24/2009,05/25/2006,05/31/2005 ,06/10/2000 Seasonal Influenza, Trivalen t, Adjuvanted, 65+ YRS, PF, (Fluad) 05/24/2018 TD, Preservative Free 11/08/2008 TDAP (age 10 and older)(Boostrix) 11/14/2018 Varicella Zoster Vaccine (Adult) 12/06/2011 documented as of this encounter Social History Tobacco Use Types Packs/Day Years Used Date Smoking Tobacco: Never Smokeless Tobacco: Never Tobacco Cessation:Counseling Given: Not Answered Alcohol Use Standard Drinks/Week Comments No 0 [...] on file documented as of this encounter Last Filed Vital Signs Vital Sign Reading Time Taken Comments Blood Pressure 116/62 04/30/2024 12:44 PM EDT Pulse 88 04/30/2024 12:44 PM EDT Temperature 37.1 C (98.8 F) 04/30/2024 12:44 PM E DT Respiratory Rate 18 04/30/2024 12:44 PM EDT Oxygen Saturation 95% 04/30/2024 12:44 PM EDT Inhaled Oxygen Concentration - - Weight - - Height 152.4 cm (5') 04/30/2024 12:44 PM EDT Body Mass Index - - documented in this encounter Patient Instructions * Patient Instructions* Nathalie Weinberg LPN - 04/30/2024 1:47 PM EDT ~~PATIENT INSTRUCTIONS FOR FLU SHOT~~ Possible side effects of influenza vaccine, (flu shot), are usually mild and include: 1. Soreness or redness at injection site 2. Low grade fever 3. Body aches You may use Tylenol/Acetaminophen as needed for these symptoms. LET YOUR DOCTOR KNOW IMMEDIATELY IF YOU HAVE DIFFICULTY BREATHING OR SWALLOWING, EXPERIENCE ITCHINGOF FEET OR HANDS, HAVE SWELLING OF EYES, FACE OR INSIDE OF NOSE. documented in this encounter Progress Notes * Nathalie Weinberg LPN - 04/30/2024 1:48 PM EDT PRE - ADMINISTRATION DOCUMENTATION Are you experiencing any cold symptoms or fever? No Have you had Guillain-Balmorhea Syndrome (an illness that causes paralysis) within the last 6 weeks? No Have you had the flu shot in the past? YES Have you ever had a reaction to the flu shot? Yes Nathalie Weinberg LPN, 04/30/2024 1:48 PM Immunization Administration Documentation Time Out Procedure Performed: Yes Patient Identified (Ask Name/Date of ): Yes Does the patient have a fever greater than 101 degrees today? No Patient allergic to latex? No VFC Stock: No Immunization(s) verified: Yes, Immunization Name: Flu, VIS Sheet(s) given: Yes Verified Side and Site: Yes Verified Shot(s) with Parent(s)/Patient: Yes * Gisella Quezada, - 04/30/2024 1:07 PM EDT Subjective: Sherin Camacho is a 88 year old female. Chief Complaint Patient presents with Hospital Follow-Up Pt states that she is here for ER follow up HPI: 88 year old female here today for an Er follow-up. She was there on 04/22 for a itchy area on the top part of her left foot and was warm. She has hx of polio osteopathy of the leg. Hx of raynaudsas well, and when her feet are down they turn cold and blue. In the Er she was given a course of keflex to cover for infection. The foot is itchy she reports still and there is still a small area of redness on the L foot. She would like her flu vaccine today. Willing to get labs. I have not seen her in a few years. Has trouble getting here due to pain in her legs and back. Here with her son. She walks with a walker. Currently in a wheel chair. Follows with [facility] and had pacer check via the phone. All medications were reviewed. PHM: Patient Active Problem List Diagnosis Postmenopausal atrophic vaginitis Need for prophylactic hormone replacement therapy (postmenopausal) Dyslipidemia, goal to be determined ADVANCE DIRECTIVE INFORMATION HTN, GOAL BELOW 140/90 Pacemaker History of colon polyps Type 2 diabetes mellitus with hemoglobin A1c goal of less than 7.0% (HCC) Osteoporosis Anxiety Polio osteopathy of lower leg, left (HCC) Permanent atrial fibrillation (HCC) Current Outpatient Medications Medication Sig Dispense Refill CALCIUM 600 TABS 600 MG OR 1 bid with food PRINZIDE TABS 20-25 MG OR 1 daily SIMVASTATIN 10 MG PO TABS one tab by mouth daily 90 3 XARELTO 20 MG PO TABS 1 TABLET DAILY 30 Tab 5 KLOR-CON M20 20 MEQ TBCR metoprolol succinate XL (TOPROL XL) 100 MG TB24 Take 1 Tablet by mouth in the morning. Sennosides-Docusate Sodium 8.6-50 MG Oral Tablet (Senexon-S) Take one to two tablets twice daily asneeded 180 Tab 0 PARoxetine HCl 20 MG Oral Tablet (pAXil) Take 1 Tablet by mouth in the morning. 90 Tablet 3 Lisinopril-hydroCHLOROthiazide 20-25 MG Oral Tablet Take 1 Tablet by mouth in the morning. in the morning.. 90 Tablet 5 Alendronate Sodium 70 MG Oral Tablet (Fosamax) TAKE 1 TABLET ONCE WEEKLY WITH 8 OUNCES OF WATER 30 MINUTES BEFORE FIRST MEAL OF THE DAY. REMAIN UPRIGHT FOR 30 MINUTES AFTER TAKING TABLET 12 Tablet 1 No current facility-administered medications for this visit. Review of patient's allergies indicates: No Known Allergies Objective: BP 116/62 | Pulse 88 | Temp 37.1 C (98.8 F) (Tympanic) | Resp 18 | Ht 1.524 m (5') | SpO2 95% |BMI 35.54 kg/m | BSA 1.87 m Physical Exam: General: alert, healthy, and no distress Heart: irregularly irregular Lungs: chest symmetric with normal AP diameter, no chest deformities noted, no chest wall tenderness, lungs clear to auscultation Abdomen: abdomen soft, non-tender, normal bowel sounds, and no masses or organomegaly Extremities: both feet are blue and cold. Swelling in her feet. Wasting of the L lower leg. At the top part of her left foot there was a [place] of redness but faded. Very mild. ASSESSMENT/PLAN: Type 2 diabetes mellitus with hemoglobin A1c goal of less than 7.0% ([facility]) (Primary) - HEMOGLOBIN A1C; Future; Expected date: 04/30/2024 - BASIC METABOLIC PANEL; Future; Expected date: 04/30/2024 - LIPID PANEL WITH DIRECT LDL IF TG IS HIGH; Future; Expected date: 04/30/2024 Polio osteopathy of lower leg, left (HCC) Permanent atrial fibrillation (HCC) Spider bite wound, accidental or unintentional, sequela - Doxycycline Hyclate 100 MG Oral Capsule; Take 1 Capsule by mouth in the morning and 1 Capsule before bedtime. Do all this for 7 days. Until gone.. Will cover for infection. To call if area still is itchy and the redness does not go away. Gisella Quezada DO documented in this encounter Nursing Notes * Nathalie Weinberg LPN - 04/30/2024 12:44 PM EDT Sherin Camacho is a 88 year old female who presents today for Chief Complaint Patient presents with Hospital Follow-Up Pt states that she is here for ER follow up documented in this encounter Miscellaneous Notes * Addendum Note - Nathalie Weinberg LPN - 04/30/2024 1:50 PM EDTAddended by: NATHALIE WEINBERG on: 04/30/2024 01:50 PM Modules accepted: Orders documented in this encounter Plan of Treatment Upcoming Encounters Date Type Department Care Team (Late st Contact Info) Description 07/09/2024 9:10 AM EST Office Visit [facility] [address] [place] [facility] [address] Gisella Quezada DO [address] [place] [address] 07/16/2024 8:30 AM EST Imaging Radiology, [address], [place] [address] Pending Results Name Type Priority Associated Diagnoses Date /Time HEMOGLOBIN A1C Lab Routine Type 2 diabetes mellitus with hemoglobin A1c goal of less than 7.0% ([facility]) 04/30/2024 1:49 PM EDT BASIC METABOLIC PANEL Lab Routine Type 2 diabetes mellitus with hemoglobin A1c goal of less than 7.0% ([facility]) 04/30/2024 1:49 PM EDT LIPID PANEL WITH DIRECT LDL IF TG IS HIGH Lab Routine Type 2 diabetes mellitus with hemoglobin A1c goal of less than 7.0% (HCC) 04/30/2024 1:49 PM EDT Scheduled Orders Name Type Priority Associated Diagnoses Orde r Schedule HEMOGLOBIN A1C Lab Routine Type 2 diabetes mellitus with hemoglobin A1c goal of less than 7.0% (HCC) Expected: 04/30/2024 (Approximate), Expires: 04/30/2025 BASIC METABOLIC PANEL Lab Routine Type 2 diabetes mellitus with hemoglobin A1c goal of less than 7.0% (HCC) Expected: 04/30/2024 (Approximate), Expires: 04/30/2025 LIPID PANEL WITH DIRECT LDL IF TG IS HIGH Lab Routine Type 2 diabetes mellitus with hemoglobin A1c goal of less than 7.0% (HCC) Expected: 04/30/2024, Expires: 04/30/2025 Health Maintenance Due Date Last Done Comments [...] D LEVEL ONCE IN A LIFETIME-USE SMARTSET# [id number] Completed 11/20/2008 RETIRED - COLONOSCOPY-EVERY 5 YRS [...] hemoglobin A1c goal of less than 7.0% (HCC)- Primary Polio osteopathy of lower leg, left (HCC) Permanent atrial fibrillation (HCC) Atrial fibrillation Spider bite wound, accidental or unintentional, sequela Need for influenza vaccination Need for prophylactic vaccination and inoculation against influenza Need for prophylactic vaccination and inoculation against influenza documented in this encounter Care Teams Instrumentation Technologist Relationship Specialty Start Date End Date Gisella Quezada DO [address] [place] [address] PCP - General Family Medicine 08/07/19 documented as of this encounter"
--- OUTSIDE RECORDS SUMMARY | 2024-05-08 04:47 | External Medical Summary | Summary of Care ---
Author Name Unknown Organization [facility] Address [address] [place] [address] Phone [phone] Care Team Providers Care Angle Roll Operator Name Role Phone Gisella Quezada DO Primary Care Provider [phone] Reason for Visit * Reason Onset Date Comments Hospital Follow-Up Pt states robert t she is here for ER follow up Medication Administration 04/30/2024 Flu an d/or Pneumo Inj Encounter Details Date Type Department Care Team (Late st Contact Info) Description 04/30/2024 12:50 PM EDT Office Visit [facility] [address] [place] [address] Gisella Quezada, [address] [place] [address] Type 2 diabetes mellitus with [...] mRNA, LNP-s, No Pre serve, 2-Dose Series ([employer]) 10/17/2020,09/26/2020 Pneumococcal Conjugate Vacc, 13 Valent (Prevnar) [...] symptoms or fever? No Have you had Guillain-Wilmot Syndrome (an illness that causes paralysis) within [...] of her left foot there was a [place] of redness but faded. Very mild. ASSESSMENT/PLAN: Type 2 diabetes mellitus with hemoglobin A1c goal of less than 7.0% ([facility]) (Primary) - HEMOGLOBIN A1C; Future; Expected [...] Description 07/09/2024 9:10 AM EST Office Visit [facility] [address] [place] [facility] [place] [address] Gisella Quezada DO [address] [place] [address] 07/16/2024 8:30 AM EST Imaging Radiology, [address], [place] [address] Pending Results Name Type Priority Associated Diagnoses Date /Time HEMOGLOBIN A1C Lab Routine Type 2 diabetes mellitus with hemoglobin A1c goal of less than 7.0% ([facility]) 04/30/2024 1:49 PM EDT BASIC METABOLIC PANEL Lab Routine Type 2 diabetes mellitus with hemoglobin A1c goal of less than 7.0% ([facility]) 04/30/2024 1:49 PM EDT LIPID PANEL [...] D LEVEL ONCE IN A LIFETIME-USE SMARTSET# [id number] Completed 11/20/2008 RETIRED - COLONOSCOPY-EVERY 5 YRS [...] influenza documented in this encounter Care Teams Angle Roll Operator Relationship Specialty Start Date End Date Gisella Quezada DO [address] [place] [address] PCP - General Family Medicine 08/07/19 documented as of this encounter"
--- OUTSIDE RECORDS SUMMARY | 2024-05-08 04:47 | External Medical Summary ---
Author Name Unknown Address Unknown Organization [id number]:[facility] [place] [address] [facility] [address] Laboratory Report Ordering Provider Test Date Status CHAYITO RAJPUTURIELMISTICullen 04/30/2024 13:49:07 Final Observation Date Value Abnormality Reference (Units ) Status HbA1C 04/30/2024 13:49:07 6.5 Above high normal 4. 0-5.6 (%) Final The use of HbA1c to monitor glycemic status is based on normal hemoglobin and HbA composition. This test should not be used in patients with abnormal hemoglobin that affects the half life of the red blood cell or the in vivo glycation rates. Glucose, estimated average 04/30/2024 13:49:07 140 Above high normal <126 (mg/dL) Kurtis rosado Performing Location [facility] [place] - [address] [facility] [address]
--- OUTSIDE RECORDS SUMMARY | 2024-05-08 04:47 | External Medical Summary ---
Author Name Unknown Address Unknown Organization [id number]:[facility] [place] - [address] [place] [address] Laboratory Report Ordering Provider Test Date Status GUILLERMO RAJPUT 04/30/2024 13:49:07 Final Observation Date Value Abnormality Reference (Units ) Status BUN 04/30/2024 13:49:07 23 Above high normal 6-20 (mg/dL) Final Creatinine 04/30/2024 13:49:07 0.6 0.5-1.0 (mg/dL) Final Glomerular filtration rate/1.73 sq M.predicted [Volume Rate/Area] in Serum, Plasma or Blood by Creatinine-based formula (CKD-EPI) 04/30/2024 13:49:07 88 >=60 (mL/min) Final eGFR is calculated based on the CKD-EPI 2020 equation. Sodium 04/30/2024 13:49:07 146 135-146 (m mol/L) Final Potassium 04/30/2024 13:49:07 3.8 3.5-5.1 (m mol/L) Final Cl 04/30/2024 13:49:07 104 98-107 (mm ol/L) Final CO2 04/30/2024 13:49:07 27 22-32 (mmo l/L) Final Anion gap 04/30/2024 13:49:07 15 7-15 (mmol /L) Final Glucose 04/30/2024 13:49:07 114 70-120 (mg /dL) Final Calcium 04/30/2024 13:49:07 10.4 Above high normal 8. 4-10.2 (mg/dL) Final Performing Location LAB[facility]ORY [facility] [place] - [address] [place] [address]
[2024-05-08 07:02] LABS: Basophils # (auto) 0.02 K/uL (0.00-0.20); Basophils % (auto) 0.4 %; Eosinophils # (auto) 0.01 K/uL (0.00-0.50); Eosinophils % (auto) 0.2 %; Hematocrit (blood only) 36.8 % (37.0-47.0); Hemoglobin 12.1 g/dl (12.0-16.0); Immature Granulocytes # (auto) 0.01 K/uL (0.01-0.20); Immature Granulocytes % (auto) 0.2 %; Lymphocytes # (auto) 0.84 K/uL (1.20-3.40); Lymphocytes % (auto) 16.4 %; Mean Corpuscular Hemoglobin 32.3 pg (25.0-34.0); Mean Corpuscular Hgb Conc 32.9 g/dL (32.0-36.0); Mean Corpuscular Volume 98.1 fL (80.0-100.0); Mean Platelet Volume 9.8 fL (9.4-12.4); Monocytes # (auto) 0.72 K/uL (0.11-0.59); Monocytes % (auto) 14.1 %; Neutrophils # (auto) 3.52 K/uL (1.40-6.50); Neutrophils % (auto) 68.7 %; Platelet Count 103 K/uL (130-400); RDW Coefficient of Variation 13.1 % (11.5-14.5); RDW Standard Deviation 46.9 fL (36.4-46.3); Red Blood Count 3.75 M/uL (4.20-5.40); White Blood Count 5.12 K/ul (4.8-10.8)
[2024-05-08 07:16] LABS: BUN Creatinine Ratio 38.6 (10-20); Calcium 8.7 mg/dl (8.6-10.3); Creatinine Clr Calc Pharmacy 67.6 ml/min; Est GFR (African American) 97.3 ml/min; Est GFR (Non-African American) 83.9 ml/min; Magnesium 2.1 mg/dl (1.7-2.4); Potassium 3.5 mmol/L (3.5-5.1)
--- NOTE | 2024-05-08 07:23 | XRay Report ---
XR chest 1V portable CLINICAL HISTORY: covid COMPARISON STUDY: Chest radiograph May 19, 2020. FINDINGS: Left subclavian pacer and right shoulder arthroplasty is incidentally noted. Lung volumes a re diminished. Cardiomegaly is unchanged. Slight blunting of the costophrenic angles is likely techni chrissie. No pneumothorax. No definite consolidation to suggest pneumonia. Appearance of the pulmonary vas culature likely related to a hypoventilatory study. IMPRESSION: Hypoventilatory study. No definite acute cardiopulmonary findings. ACT 112: Negative or not required by law. Electronically signed by: Dustin Burr M.D. 05/08/2024 7:22 AM
[2024-05-08] MEDS: METOPROLOL SUCC 25MG EXT REL TAB PO SCH (08:08)
[2024-05-08] MEDS ORDERED: METOPROLOL SUCC 50MG EXT REL TAB PO SCH (09:00)
[2024-05-08] MEDS ORDERED: lisinopril 20 MG TAB PO SCH (09:00)
[2024-05-08] MEDS: PARoxetine HCL 20 MG TAB PO SCH (09:09)
[2024-05-08] MEDS: SIMVASTATIN 10 MG TAB PO SCH (09:09)
[2024-05-08] MEDS: CALCIUM 600MG + VIT D 400 IU TAB PO SCH (09:09)
--- NOTE | 2024-05-08 10:54 | Electrocardiogram Report ---
Test Reason : Blood Pressure : */* mmHG Vent. Rate : 82 BPM Atrial Rate : * BPM P-R Int : * ms QRS Dur : 94 ms QT Int : 380 ms P-R-T Axes : * -29 39 degrees QTcB Int : 443 ms Atrial fibrillation with frequent ventricular-paced complexes Nonspecific ST abnormality Abnormal ECG When compared with ECG of 19-May-2020 15:40, Electronic ventricular pacemaker has replaced Atrial fibrillation Confirmed by Lorenzo Clifford ([id number]) on 05/08/2024 10:52:54 AM Referred By: REFERRED SELF Confirmed By: Lorenzo Clifford
--- NOTE | 2024-05-08 12:59 | Hospitalist Progress Note ---
Date of Service May 08, 2024 Assessment & Plan (1) Hypotension: Plan: Acute UTI, COVID-19 Infection Patient presented to the hospital with few day history of generalized weakness and dry cough. Found to have COVID-19 infection Chest x-ray reviewed personally; no acute finding Urinalysis suggestive for infection Monitor oxygenation; supply supplemental oxygen if SpO2 less than 92% Continue on ceftriaxone; follow-up on urine culture Hold antihypertensive as patient's blood pressure was low on admission. dose of metoprolol decreased as well. 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 Xarelto DNR Please note the above document was generated using voice recognition software. It may contain grammatical, syntax or spelling errors. Any formal questions or concerns about the content, text or information contained within the body of this dictation should be directly addressed to the provider for clarification Admission and Anticipated Discharge Date Admission Date: May 07, 2024 Subjective Patient seen and examined at bedside. She is comfortable; not in distress She is saturating well on room air No significant events overnight Review of Systems Review of Systems: All systems reviewed & are unremarkable except as noted in Subjective Physical Exam Physical Exam: GENERAL: Comfortable, pleasant, obese, not in any distress SKIN: Normal color, warm HEENT: [place] palpebral conjunctivae, no ptosis, dry buccal mucosa NECK : Supple, no tenderness CHEST : CTA, no tenderness HEART : Irregular, no obvious murmurs ABDOMEN: Some distention, nontender EXTREMITIES : Minimal LE swelling, no LE tenderness, no other conspicuous deformities noted NEUROLOGIC : Coherent, no facial asymmetry, slightly hard of hearing, gait and stance not assessed Results & Data Results & Data Vital Signs (Past 12 Hours) Vital Signs Temp Pulse Pulse Pulse Pulse Resp BP 05/08/24 12:46 37.4 C 87 20 136/79 05/08/24 12:00 89 18 132/64 05/08/24 08:13 36.8 C 83 17 118/81 05/08/24 07:30 87 17 119/72 05/08/24 06:08 84 22 118/58 L 05/08/24 04:55 87 16 110/58 L 05/08/24 02:20 100/48 L 05/08/24 01:58 66 17 96/43 L 05/08/24 01:27 66 Pulse Ox O2 Del Method 05/08/24 12:46 94 Room Air 05/08/24 12:00 95 Room Air 05/08/24 08:13 95 Room Air 05/08/24 07:30 Room Air 05/08/24 06:08 05/08/24 04:55 95 Room Air 05/08/24 02:20 05/08/24 01:58 96 Room Air 05/08/24 01:27
[2024-05-08] MEDS: RIVAROXABAN 20 MG TAB PO SCH (16:18)
[2024-05-08] MEDS: cefTRIAXone SODIUM 2,000 MG/50 ML BAG IV SCH (22:09)
[2024-05-08] MEDS: ACETAMINOPHEN 325 MG TAB PO PRN (23:13)
[2024-05-09 06:40] LABS: BUN Creatinine Ratio 34.5 (10-20); Calcium 8.7 mg/dl (8.6-10.3); Creatinine Clr Calc Pharmacy 70.8 ml/min; Est GFR (African American) 98.4 ml/min; Est GFR (Non-African American) 84.9 ml/min; Potassium 3.5 mmol/L (3.5-5.1)
[2024-05-09 06:48] LABS: Hematocrit (blood only) 33.8 % (37.0-47.0); Mean Corpuscular Hemoglobin 34.1 pg (25.0-34.0); Mean Corpuscular Hgb Conc 35.5 g/dL (32.0-36.0); Mean Platelet Volume 9.1 fL (9.4-12.4); Platelet Count 95 K/uL (130-400); RDW Coefficient of Variation 12.9 % (11.5-14.5); RDW Standard Deviation 46.1 fL (36.4-46.3); Red Blood Count 3.52 M/uL (4.20-5.40); White Blood Count 3.27 K/ul (4.8-10.8)
[2024-05-09 06:51] LABS: Basophils # (auto) 0.01 K/uL (0.00-0.20); Basophils % (auto) 0.3 %; Eosinophils # (auto) 0.05 K/uL (0.00-0.50); Eosinophils % (auto) 1.5 %; Immature Granulocytes # (auto) 0.01 K/uL (0.01-0.20); Immature Granulocytes % (auto) 0.3 %; Lymphocytes # (auto) 0.82 K/uL (1.20-3.40); Lymphocytes % (auto) 25.1 %; Monocytes # (auto) 0.46 K/uL (0.11-0.59); Monocytes % (auto) 14.1 %; Neutrophils # (auto) 1.92 K/uL (1.40-6.50); Neutrophils % (auto) 58.7 %
[2024-05-09] MEDS ORDERED: INFLUENZA VACC TS2024-25(65y+)/PF (IIV3) 0.5mL Syr IM ONE (09:43)
--- NOTE | 2024-05-09 14:54 | Hospitalist Progress Note ---
Date of Service May 09, 2024 Assessment & Plan (1) Hypotension: Plan: COVID-19 Infection Generalized weakness Patient presented to the hospital with few day history of generalized weakness and dry cough. --CXR:Hypoventilatory study. No definite acute cardiopulmonary findings. --BioFire positive for COVID-19 --Saturating well on room air --Conservative management PT OT recommends rehab: Patient not interested in rehab placement Plan to discharge home as able Abnormal urinalysis UTI ruled out Urine culture negative Empirically received Rocephin Hypertension Blood pressure relatively low Hold lisinopril follow-up Metoprolol dose decreased to 25 mg daily Monitor and adjust medications as needed Other chronic conditions: SSS S/P PPM on Xarelto, metoprolol Hyperlipidemia, on statin Rx - continue DM2 on oral medications, well-controlled as of recent hemoglobin A1c of 6.5 May 01 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 DVT Px: Xarelto CODE STATUS DNI DNR Admission and Anticipated Discharge Date Admission Date: May 07, 2024 Subjective Patient is seen and examined at bedside States feeling well today Offers no complaints Had PT evaluation earlier today Denies any chest pain, dyspnea, nausea, vomiting, abdominal pain Saturating well on room air Review of Systems Review of Systems: All systems reviewed & are unremarkable except as noted in Subjective Physical Exam Physical Exam: Physical Exam: Vitals signs as noted above General Appearance:Moderately built and nourished, no apparent distress Head: normocephalic, Atraumatic Eyes: normal inspection, EOMI Neck: supple, Trachea midline Respiratory/Chest: Normal breath sounds, CTA, No accessory muscle use Cardiovascular: Irregularly irregular, No murmur Abdomen/GI:Soft, Non tender, Bowel sounds present Extremities/Musculoskeletal:normal inspection, no edema Neurologic/Psych:AAOX3, grossly no focal neurological deficits ,+Decreased hearing Skin: normal color, warm Results & Data Results & Data Vital Signs (Past 12 Hours) Vital Signs Temp Pulse Pulse Resp BP Pulse Ox O2 Del Method 05/09/24 12:46 Room Air 05/09/24 11:55 36.6 C 79 16 123/64 99 Room Air 05/09/24 08:33 36.8 C 81 16 134/72 96 Room Air 05/09/24 03:38 36.8 C 77 18 109/70 96 Room Air Laboratory Results Short CBC 05/09/24 Range/Units 06:03 WBC 3.27 L (4.8-10.8) K/ul Hgb 12.0 (12.0-16.0) g/dl Hct 33.8 L (37.0-47.0) % Plt Count 95 L (130-400) K/uL BMP 05/09/24 06:03 Sodium 142 Potassium 3.5 Chloride 108 H Carbon Dioxide 27 BUN 19 Creatinine 0.55 L Glucose 91 Calcium 8.7
[2024-05-10 07:36] LABS: Hematocrit (blood only) 33.2 % (37.0-47.0); Hemoglobin 11.3 g/dl (12.0-16.0); Mean Corpuscular Volume 97.1 fL (80.0-100.0); Mean Platelet Volume 9.4 fL (9.4-12.4); Platelet Count 92 K/uL (130-400); RDW Coefficient of Variation 12.7 % (11.5-14.5); Red Blood Count 3.42 M/uL (4.20-5.40); White Blood Count 2.79 K/ul (4.8-10.8)
[2024-05-10 07:52] LABS: Calcium 8.8 mg/dl (8.6-10.3); Creatinine Clr Calc Pharmacy 77.7 ml/min; Potassium 3.1 mmol/L (3.5-5.1)
[2024-05-10] MEDS: METOPROLOL SUCC 50MG EXT REL TAB PO SCH (09:24)
[2024-05-10] MEDS: POTASSIUM CHLORIDE 20 MEQ/15 ML UDC PO ONE (10:26)
[2024-05-10] MEDS: MAGNESIUM CHLORIDE W/CALCIUM 64MG DELAYED REL TAB PO SCH (10:26)
[2024-05-10] MEDS: INFLUENZA VACC TS2024-25(65y+)/PF (IIV3) 0.5mL Syr IM ONE (12:57)
--- NOTE | 2024-05-10 15:16 | Hospitalist Progress Note ---
Date of Service May 10, 2024 Assessment & Plan (1) Hypotension: Plan: COVID-19 Infection Generalized weakness Patient presented to the hospital with few day history of generalized weakness and dry cough. --CXR:Hypoventilatory study. No definite acute cardiopulmonary findings. --BioFire positive for COVID-19 --Saturating well on room air --Conservative management PT OT recommends rehab Plan to discharge once rehab arranged Abnormal urinalysis UTI ruled out Urine culture negative Empirically received Rocephin Hypokalemia Replete electrolytes as needed Monitor Hypertension Blood pressure relatively low Hold lisinopril follow-up Continue metoprolol at reduced dose 50 mg daily Monitor and adjust medications as needed Other chronic conditions: SSS S/P PPM on Xarelto, metoprolol Hyperlipidemia, on statin Rx - continue DM2 on oral medications, well-controlled as of recent hemoglobin A1c of 6.5 May 01 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 DVT Px: Xarelto CODE STATUS DNI DNR Disposition Rehab Case management to help with discharge planning Admission and Anticipated Discharge Date Admission Date: May 07, 2024 Subjective Patient is seen and examined at bedside No new complaints Discussed with patient's family at bedside Denies any chest pain, dyspnea, nausea, vomiting, abdominal pain Saturating well on room air Patient agrees to go to rehab facility Review of Systems Review of Systems: All systems reviewed & are unremarkable except as noted in Subjective Physical Exam Physical Exam: Physical Exam: Vitals signs as noted above General Appearance:Moderately built and nourished, no apparent distress Head: normocephalic, Atraumatic Eyes: normal inspection, EOMI Neck: supple, Trachea midline Respiratory/Chest: Normal breath sounds, CTA, No accessory muscle use Cardiovascular: Irregularly irregular, No murmur Abdomen/GI:Soft, Non tender, Bowel sounds present Extremities/Musculoskeletal:normal inspection, no edema Neurologic/Psych:AAOX3, grossly no focal neurological deficits ,+Decreased hearing Skin: normal color, warm Results & Data Results & Data Vital Signs (Past 12 Hours) Vital Signs Temp Pulse Pulse Resp BP BP Pulse Ox 05/10/24 12:34 36.4 C L 72 18 123/77 97 05/10/24 08:37 36.8 C 80 18 159/80 H 94 05/10/24 07:38 96 H O2 Del Method 05/10/24 12:34 Room Air 05/10/24 08:37 Room Air 05/10/24 07:38 Laboratory Results Short CBC 05/10/24 Range/Units 06:49 WBC 2.79 L (4.8-10.8) K/ul Hgb 11.3 L (12.0-16.0) g/dl Hct 33.2 L (37.0-47.0) % Plt Count 92 L (130-400) K/uL BMP 05/10/24 06:49 Sodium 140 Potassium 3.1 L Chloride 106 Carbon Dioxide 28 BUN 16 Creatinine 0.50 L Glucose 91 Calcium 8.8
[2024-05-10] MEDS: POTASSIUM CHLORIDE CRTAB 20 MEQ TABCR PO SCH (20:46)
[2024-05-11 06:22] LABS: Hemoglobin 11.6 g/dl (12.0-16.0); Mean Corpuscular Hemoglobin 33.1 pg (25.0-34.0); Mean Corpuscular Hgb Conc 34.1 g/dL (32.0-36.0); Mean Corpuscular Volume 97.1 fL (80.0-100.0); Mean Platelet Volume 9.3 fL (9.4-12.4); Platelet Count 99 K/uL (130-400); RDW Coefficient of Variation 12.7 % (11.5-14.5); RDW Standard Deviation 45.1 fL (36.4-46.3); White Blood Count 2.91 K/ul (4.8-10.8)
[2024-05-11 06:28] LABS: BUN Creatinine Ratio 32.1 (10-20); Calcium 9.1 mg/dl (8.6-10.3); Creatinine Clr Calc Pharmacy 73.2 ml/min; Magnesium 1.9 mg/dl (1.7-2.4); Potassium 4.1 mmol/L (3.5-5.1)
--- NOTE | 2024-05-11 15:55 | Hospitalist Progress Note ---
Date of Service May 11, 2024 Assessment & Plan (1) Hypotension: Plan: COVID-19 Infection Generalized weakness Patient presented to the hospital with few day history of generalized weakness and dry cough. --CXR:Hypoventilatory study. No definite acute cardiopulmonary findings. --BioFire positive for COVID-19 --Saturating well on room air --Conservative management PT OT recommends rehab No significant symptoms Waiting for rehab placement Abnormal urinalysis UTI ruled out Urine culture negative Empirically received Rocephin Hypokalemia Replete electrolytes as needed Monitor Hypertension Blood pressure relatively low on presentation Hold lisinopril follow-up Continue metoprolol at reduced dose 50 mg daily Monitor and adjust medications as needed Other chronic conditions: Permanent atrial fibrillation SSS S/P PPM on Xarelto, metoprolol Hyperlipidemia, on statin Rx - continue DM2 on oral medications, well-controlled as of recent hemoglobin A1c of 6.5 May 01 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 DVT Px: Xarelto CODE STATUS DNI DNR Disposition Rehab when arranged Admission and Anticipated Discharge Date Admission Date: May 07, 2024 Subjective Patient is seen and examined at bedside Sitting in chair during my encounter Family at bedside Offers no new complaints today Saturating well on room air Denies any chest pain, dyspnea, nausea, vomiting, abdominal pain Waiting for rehab placement Review of Systems Review of Systems: All systems reviewed & are unremarkable except as noted in Subjective Physical Exam Physical Exam: Physical Exam: Vitals signs as noted above General Appearance:Moderately built and nourished, no apparent distress Head: normocephalic, Atraumatic Eyes: normal inspection, EOMI Neck: supple, Trachea midline Respiratory/Chest: Normal breath sounds, CTA, No accessory muscle use Cardiovascular: Irregularly irregular, No murmur Abdomen/GI:Soft, Non tender, Bowel sounds present Extremities/Musculoskeletal:normal inspection, no edema Neurologic/Psych:AAOX3, grossly no focal neurological deficits ,+Decreased hearing Skin: normal color, warm Results & Data Results & Data Vital Signs (Past 12 Hours) Vital Signs Temp Pulse Pulse Pulse Resp BP Pulse Ox 05/11/24 15:17 37.0 C 78 18 131/82 97 05/11/24 14:54 66 05/11/24 12:03 36.6 C 74 18 139/84 97 05/11/24 10:32 73 05/11/24 09:16 36.7 C 77 19 132/80 98 05/11/24 04:30 36.5 C 72 18 148/85 H 96 O2 Del Method 05/11/24 15:17 Room Air 05/11/24 14:54 05/11/24 12:03 Room Air 05/11/24 10:32 05/11/24 09:16 Room Air 05/11/24 04:30 Room Air Laboratory Results Short CBC 05/11/24 Range/Units 05:28 WBC 2.91 L (4.8-10.8) K/ul Hgb 11.6 L (12.0-16.0) g/dl Hct 34.0 L (37.0-47.0) % Plt Count 99 L (130-400) K/uL BMP 05/11/24 05:28 Sodium 142 Potassium 4.1 D Chloride 108 H Carbon Dioxide 27 BUN 17 Creatinine 0.53 L Glucose 86 Calcium 9.1
--- NOTE | 2024-05-12 11:19 | Electrocardiogram Report ---
Test Reason : Blood Pressure : */* mmHG Vent. Rate : 75 BPM Atrial Rate : * BPM P-R Int : * ms QRS Dur : 86 ms QT Int : 330 ms P-R-T Axes : * -29 -28 degrees QTcB Int : 368 ms Atrial fibrillation with frequent ventricular-paced complexes Nonspecific ST and T wave abnormality Abnormal ECG When compared with ECG of 07-May-2024 17:53, Vent. rate has decreased by 7 bpm Confirmed by Gregorio Penny ([id number]) on 05/12/2024 11:19:04 AM Referred By: REFERRED SELF Confirmed By: Gergorio Penny
--- NOTE | 2024-05-12 16:38 | Hospitalist Progress Note ---
Date of Service May 12, 2024 Assessment & Plan (1) Hypotension: Plan: COVID-19 Infection Generalized weakness Patient presented to the hospital with few day history of generalized weakness and dry cough. --CXR:Hypoventilatory study. No definite acute cardiopulmonary findings. --BioFire positive for COVID-19 --Saturating well on room air --Conservative management PT OT recommends rehab Waiting for rehab placement Clinically stable Abnormal urinalysis UTI ruled out Urine culture negative Empirically received Rocephin Hypokalemia Replete electrolytes as needed Monitor Hypertension Blood pressure better Resume lisinopril tomorrow Continue metoprolol at reduced dose 50 mg daily Monitor and adjust medications as needed Other chronic conditions: Permanent atrial fibrillation SSS S/P PPM on Xarelto, metoprolol Hyperlipidemia, on statin Rx - continue DM2 on oral medications, well-controlled as of recent hemoglobin A1c of 6.5 May 01 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 DVT Px: Xarelto CODE STATUS DNI DNR Disposition Rehab when arranged Admission and Anticipated Discharge Date Admission Date: May 07, 2024 Subjective Patient is seen and examined at bedside No new complaints Denies any chest pain, dyspnea, nausea, vomiting, abdominal pain Waiting for rehab placement Review of Systems Review of Systems: All systems reviewed & are unremarkable except as noted in Subjective Physical Exam Physical Exam: Physical Exam: Vitals signs as noted above General Appearance:Moderately built and nourished, no apparent distress Head: normocephalic, Atraumatic Eyes: normal inspection, EOMI Neck: supple, Trachea midline Respiratory/Chest: Normal breath sounds, CTA, No accessory muscle use Cardiovascular: Irregularly irregular, No murmur Abdomen/GI:Soft, Non tender, Bowel sounds present Extremities/Musculoskeletal:normal inspection, no edema Neurologic/Psych:AAOX3, grossly no focal neurological deficits ,+Decreased hearing Skin: normal color, warm Results & Data Results & Data Vital Signs (Past 12 Hours) Vital Signs Temp Pulse Pulse Pulse Resp BP BP 05/12/24 15:22 36.7 C 69 18 149/85 H 05/12/24 13:45 86 05/12/24 11:45 36.7 C 68 15 149/82 H 05/12/24 09:14 36.5 C 73 15 138/84 05/12/24 07:41 75 Pulse Ox O2 Del Method 05/12/24 15:22 95 Room Air 05/12/24 13:45 05/12/24 11:45 95 Room Air 05/12/24 09:14 95 Room Air 05/12/24 07:41
[2024-05-13] MEDS: LISINOPRIL/HCTZ 20/25MG 1 TAB PO SCH (10:02)
[2024-05-13] MEDS ORDERED: ALENDRONATE SODIUM 70 MG TAB PO SCH (11:00)
[2024-05-13] MEDS ORDERED: Nursing to Pharmacy Communication SCH (13:30)
--- NOTE | 2024-05-13 16:31 | Hospitalist Progress Note ---
Date of Service May 13, 2024 Assessment & Plan (1) Hypotension: Plan: COVID-19 Infection Generalized weakness Patient presented to the hospital with few day history of generalized weakness and dry cough. --CXR:Hypoventilatory study. No definite acute cardiopulmonary findings. --BioFire positive for COVID-19 --Saturating well on room air --Conservative management PT OT recommends rehab Clinically stable Case management to help with discharge planning Abnormal urinalysis UTI ruled out Urine culture negative Empirically received Rocephin Hypokalemia Replete electrolytes as needed Monitor Hypertension Continue 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 Monitor Other chronic conditions: Permanent atrial fibrillation SSS S/P PPM on Xarelto, metoprolol Hyperlipidemia, on statin Rx - continue DM2 on oral medications, well-controlled as of recent hemoglobin A1c of 6.5 May 01 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 DVT Px: Xarelto CODE STATUS DNI DNR Disposition Rehab when arranged Admission and Anticipated Discharge Date Admission Date: May 07, 2024 Subjective Patient is seen and examined at bedside Doing well Saturating well on room air Denies any chest pain, dyspnea, nausea, vomiting, abdominal pain Waiting for rehab placement Review of Systems Review of Systems: All systems reviewed & are unremarkable except as noted in Subjective Physical Exam Physical Exam: Physical Exam: Vitals signs as noted above General Appearance:Moderately built and nourished, no apparent distress Head: normocephalic, Atraumatic Eyes: normal inspection, EOMI Neck: supple, Trachea midline Respiratory/Chest: Normal breath sounds, CTA, No accessory muscle use Cardiovascular: Irregularly irregular, No murmur Abdomen/GI:Soft, Non tender, Bowel sounds present Extremities/Musculoskeletal:normal inspection, no edema Neurologic/Psych:AAOX3, grossly no focal neurological deficits ,+Decreased hearing Skin: normal color, warm Results & Data Results & Data Vital Signs (Past 12 Hours) Vital Signs Temp Pulse Pulse Resp BP BP Pulse Ox 05/13/24 15:54 36.6 C 73 18 130/79 94 05/13/24 14:22 94 H 05/13/24 12:00 36.7 C 69 18 165/80 H 93 05/13/24 08:39 36.6 C 61 18 127/88 96 05/13/24 07:14 69 O2 Del Method 05/13/24 15:54 Room Air 05/13/24 14:22 05/13/24 12:00 Room Air 05/13/24 08:39 Room Air 05/13/24 07:14
[2024-05-14] MEDS: ALENDRONATE SODIUM 70 MG TAB PO ONE (06:27)
[2024-05-14] MEDS: guaiFENesin SUGAR FREE 200 MG/10 ML UDC PO PRN (09:08)
--- NOTE | 2024-05-14 15:40 | Hospitalist Progress Note ---
Date of Service May 14, 2024 Assessment & Plan (1) Hypotension: Plan: COVID-19 Infection Generalized weakness Patient presented to the hospital with few day history of generalized weakness and dry cough. --CXR:Hypoventilatory study. No definite acute cardiopulmonary findings. --BioFire positive for COVID-19 --Saturating well on room air --Conservative management PT OT recommends rehab Clinically stable for discharge Case management to help with discharge planning Likely discharge to rehab facility tomorrow Abnormal urinalysis UTI ruled out Urine culture negative Empirically received Rocephin Hypokalemia Replete electrolytes as needed Monitor Hypertension Continue 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 Monitor Other chronic conditions: Permanent atrial fibrillation SSS S/P PPM on Xarelto, metoprolol Hyperlipidemia, on statin Rx - continue DM2 on oral medications, well-controlled as of recent hemoglobin A1c of 6.5 May 01 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 DVT Px: Xarelto CODE STATUS DNI DNR Disposition Rehab when arranged Admission and Anticipated Discharge Date Admission Date: May 07, 2024 Subjective Patient is seen and examined at bedside No new complaints Had PT OT evaluation earlier today Denies any chest pain, dyspnea, nausea, vomiting, abdominal pain Waiting for rehab placement Review of Systems Review of Systems: All systems reviewed & are unremarkable except as noted in Subjective Physical Exam Physical Exam: Physical Exam: Vitals signs as noted above General Appearance:Moderately built and nourished, no apparent distress Head: normocephalic, Atraumatic Eyes: normal inspection, EOMI Neck: supple, Trachea midline Respiratory/Chest: Normal breath sounds, No accessory muscle use Cardiovascular: Irregularly irregular, No murmur Abdomen/GI:Soft, Non tender, Bowel sounds present Extremities/Musculoskeletal:normal inspection, no edema Neurologic/Psych:AAOX3, grossly no focal neurological deficits ,+Decreased hearing Skin: normal color, warm Results & Data Results & Data Vital Signs (Past 12 Hours) Vital Signs Temp Pulse Pulse Resp BP Pulse Ox O2 Del Method 05/14/24 15:36 36.7 C 74 18 149/80 H 97 Room Air 05/14/24 14:25 79 05/14/24 12:19 36.6 C 73 18 92/58 L 97 Room Air 05/14/24 08:27 36.6 C 72 17 128/80 96 Room Air 05/14/24 06:58 64
[2024-05-15 11:26] VITALS: RESP 18
--- NOTE | 2024-05-15 14:46 | Hospitalist Progress Note ---
Date of Service May 15, 2024 Assessment & Plan (1) Hypotension: Plan: COVID-19 Infection Generalized weakness Patient presented to the hospital with few day history of generalized weakness and dry cough. --CXR:Hypoventilatory study. No definite acute cardiopulmonary findings. --BioFire positive for COVID-19 --Saturating well on room air --Conservative management PT OT recommends rehab Clinically stable for discharge Case management to help with discharge planning Likely discharge to rehab facility next 24 to 48 hours Abnormal urinalysis UTI ruled out Urine culture negative Empirically received Rocephin Constipation Started on bowel regimen Monitor Hypokalemia Replete electrolytes as needed Monitor Hypertension Continue 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 Monitor Other chronic conditions: Permanent atrial fibrillation SSS S/P PPM on Xarelto, metoprolol Hyperlipidemia, on statin Rx - continue DM2 on oral medications, well-controlled as of recent hemoglobin A1c of 6.5 May 01 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 DVT Px: Xarelto CODE STATUS DNI DNR Disposition Rehab when arranged Admission and Anticipated Discharge Date Admission Date: May 07, 2024 Subjective Patient is seen and examined at bedside States feeling constipated No other complaints today Denies any chest pain, dyspnea, nausea, vomiting, abdominal pain Waiting for rehab placement Review of Systems Review of Systems: All systems reviewed & are unremarkable except as noted in Subjective Physical Exam Physical Exam: Physical Exam: Vitals signs as noted above General Appearance:Moderately built and nourished, no apparent distress Head: normocephalic, Atraumatic Eyes: normal inspection, EOMI Neck: supple, Trachea midline Respiratory/Chest: Normal breath sounds, No accessory muscle use Cardiovascular: Irregularly irregular, No murmur Abdomen/GI:Soft, Non tender, Bowel sounds present Extremities/Musculoskeletal:normal inspection, no edema Neurologic/Psych:AAOX3, grossly no focal neurological deficits ,+Decreased hearing Skin: normal color, warm Results & Data Results & Data Vital Signs (Past 12 Hours) Vital Signs Temp Pulse Pulse Resp BP Pulse Ox O2 Del Method 05/15/24 11:25 36.8 C 72 18 116/69 96 Room Air 05/15/24 09:59 05/15/24 07:00 36.5 C 69 16 164/78 H 97 Room Air O2 Del Method 05/15/24 11:25 05/15/24 09:59 Room Air 05/15/24 07:00
[2024-05-15] MEDS: POLYETHYLENE (MIRALAX) 17 GM PACK PO PRN (17:29)
[2024-05-15] MEDS: DOCUSATE SODIUM 100 MG CAP PO PRN (17:29)
[2024-05-16 07:32] LABS: Calcium 9.2 mg/dl (8.6-10.3); Creatinine Clr Calc Pharmacy 99.5 ml/min; Potassium 3.8 mmol/L (3.5-5.1)
[2024-05-16 07:42] VITALS: BP 164/79; TEMP 98.1; O2SAT 92
[2024-05-16 09:07] VITALS: PULSE 71
--- NOTE | 2024-05-16 11:48 | Discharge Summary ---
Date of Service May 16, 2024 Admission HPI Per Admitting Provider History obtained from patient and records. Medical history significant for SSS status post PPM on Xarelto, hypertension, hyperlipidemia, DM2 on oral medications, melanoma as per records, anxiety disorder, postpolio syndrome. Last confinement 2009 under Orthopedics service for elective right hip surgery. Patient seen at the ER 2 weeks ago for left foot cellulitis. Improved on doxycycline Rx. Few days history of generalized weakness. Dry cough symptoms without chest pain or SOB. No abdominal pain or dysuria symptoms. Not sure about sick contacts. IV ceftriaxone administered at the ER for UTI. Lowest SBP of 90s documented at the ER. Medical History as above Surgical History : Dental surgery, hip surgery, shoulder surgery, PPM, FUENTES Family History : Liver cancer, DM, heart disease Personal/Social history : Non-smoker, no EtOH intake Admission Exam Per Admitting Provider GENERAL: Comfortable, pleasant, obese, slightly hard of hearing, no respiratory distress SKIN: Normal color, warm HEENT: [place] palpebral conjunctivae, no ptosis, dry buccal mucosa NECK : Supple, no tenderness CHEST : CTA, no tenderness HEART : Irregular, no obvious murmurs ABDOMEN: Some distention, nontender EXTREMITIES : Minimal LE swelling, no LE tenderness, no other conspicuous deformities noted NEUROLOGIC : Coherent, no facial asymmetry, slightly hard of hearing, gait and stance not assessed Principal Diagnosis covid 19, weakness Discharge Exam General Appearance:Moderately built and nourished, no apparent distress Head: normocephalic, Atraumatic Eyes: normal inspection, EOMI Neck: supple Respiratory/Chest: Normal breath sounds, No accessory muscle use Cardiovascular: S1, S2 heard, No murmur Abdomen/GI:Soft, Non tender, Bowel sounds present Extremities/Musculoskeletal:normal inspection, no edema Neurologic/Psych:AAOX3, grossly no focal neurological deficits ,+Decreased hearing Skin: warm, dry Discharge Data Allergies Allergy/AdvReac Type Severity Reaction Status Date / Time No Known Allergies Allergy Verified 09/27/22 11:48 Consultations 05/07/24 21:27 ED Decision to Admit Stat Hospital Course (1) Hypotension: COVID-19 Infection Generalized weakness Patient presented to the hospital with few day history of generalized weakness and dry cough. --CXR:Hypoventilatory study. No definite acute cardiopulmonary findings. --BioFire positive for COVID-19 --Saturating well on room air --Conservative management PT OT recommends rehab Clinically stable for discharge Case management to help with discharge planning Abnormal urinalysis UTI ruled out Urine culture negative Empirically received Rocephin Constipation Started on bowel regimen Monitor Hypokalemia Replete electrolytes as needed Monitor Hypertension Continue 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 Monitor Other chronic conditions: Permanent atrial fibrillation SSS S/P PPM on Xarelto, metoprolol Hyperlipidemia, on statin Rx - continue DM2 on oral medications, well-controlled as of recent hemoglobin A1c of 6.5 May 01 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 DVT Px: Xarelto CODE STATUS DNI DNR Disposition Rehab Total Time Total Time Spent Total Time Spent (In Minutes): 40 Discharge Plan Discharge Items Patient Disposition: Transfer Alf Fac Reason For Visit: HYPOTENSION, COMP UTI, COVID Discharge Diagnosis: COVID-19 Infection Generalized weakness Hypotension Activity: Per Instructions section Exercise/Sports: Gradually increase as tolerated Non-emergency contact: Primary Care Provider Call non-emergency contact if: you have any medication questions, your symptoms worsen, your pain is concerning for you and you have a fever Follow-up/Referrals: Gisella Quezada, [Primary Care Provider] - ( ) Diet: Carb Consistent or DM2 and Heart Healthy Addtl Attending Provider Instructions: Follow up with your Primary Care physician within 1 week. Monitor your blood pressure regularly as advised. Your metoprolol was decreased to 50 mg. Discuss with your physician for further adjustment of medications as needed. Recommend to have your potassium and magnesium level rechecked in 1 week. Seek immediate medical attention if your symptoms reoccur or worsen Please take all medications as instructed on discharge list below. Please call if you have any questions or problems. You can reach a [facility] hospitalist on duty at [facility] 24 hours a day by calling [phone] Pending Studies at Discharge: No Stand-Alone Forms: My [facility] Skilled Items Patient informed of condition?: Yes DNR: Yes Discharge Level of Care: Skilled Communicable Disease: Yes Discharge Prognosis: Stable Lines: None Urinary Catheter: No Medications and DC Order Prescriptions: New polyethylene glycol 3350 [Miralax] 17 gram Powder In Packet 17 g PO DAILY PRN (Reason: constipation) Qty: 14 0RF guaifenesin 100 mg/5 mL Liquid 200 mg PO Q6H PRN (Reason: cough) Qty: 1000 0RF Continued lisinopril-hydrochlorothiazide 20-25 mg tablet 1 tab PO QAM Qty: 90 3RF rivaroxaban 20 mg tablet 20 mg PO QAM Qty: 90 3RF potassium chloride 20 mEq tablet extended release 20 meq PO QAM Qty: 90 3RF alendronate 70 mg tablet 70 mg PO WEEKLY Rx Instructions: TUESDAY paroxetine HCl 20 mg tablet 20 mg PO DAILY calcium carbonate [Calcium 600] 600 mg calcium (1,500 mg) Tablet 600 mg PO BID simvastatin 10 mg tablet 10 mg PO 1XD Changed metoprolol succinate 100 mg tablet extended release 24 hr 50 mg PO QAM Qty: 90 3RF Discharge Orders: Discharge Order (Routine); Ordered 05/16/24 Ordered By: Douglas Bean Admission Data Admit Date/Time: 05/07/24 23:09 Attending Provider: Douglas Bean Admit Provider: Sachin Louie Primary Care Provider: Gisella Quezada Other Providers: Sachin Louie; [facility]; Pollo Montes [facility]; Uvaldo Owen
== END 2024-05-16 14:00 | DRG 178 ==
LOC: ED 17:46 → SUATTDRO 23:09 → EDINP 23:09 → 2W 05-08 00:22

== ENCOUNTER 2025-05-31 15:33 | Inpatient (IN) ==
[2025-05-31 16:09] LABS: Hematocrit (blood only) 41.8 % (37.0-47.0); Hemoglobin 14.2 g/dl (12.0-16.0); Immature Granulocytes # (auto) 0.01 K/uL (0.01-0.20); Immature Granulocytes % (auto) 0.2 %; Mean Corpuscular Hemoglobin 32.4 pg (25.0-34.0); Mean Corpuscular Volume 95.4 fL (80.0-100.0); Platelet Count 141 K/uL (130-400); RDW Standard Deviation 45.0 fL (36.4-46.3); Red Blood Count 4.38 M/uL (4.20-5.40); White Blood Count 5.94 K/ul (4.8-10.8)
--- NOTE | 2025-05-31 16:18 | XRay Report ---
Clinical History: Weakness Technique: A frontal view of the chest was obtained Comparison is made to the prior examination dated 05/07/2024 Findings: There are no confluent pulmonary infiltrates. The heart size is within normal limits. No pleural effusion or pneumothorax is seen. There is no definite pulmonary nodule. No fracture is noted. There is a left chest wall pacemaker device. There is a right shoulder arthroplasty Impression: No active disease Electronically signed by Suresh Villalobos 05-31-2025 4:17 PM
[2025-05-31 16:26] LABS: Alanine Aminotransferase 15.0 U/L (7-52); Albumin Globulin Ratio 1.3 (0.9-2); Albumin Level 4.0 gm/dl (3.4-5.0); Alkaline Phosphatase 46.0 U/L (34-104); Anion Gap 7.0 (3-11); Bilirubin,Total 1.1 mg/dl (0.2-1.0); Blood Urea Nitrogen 26.0 mg/dl (6-23); Calcium 10.1 mg/dl (8.6-10.3); Carbon Dioxide 29.0 mmol/L (21-32); Chloride 101.0 mmol/L (98-107); Creatinine Clr Calc Pharmacy 57.0 ml/min; Globulin 3.0 gm/dl (2.5-4.0); Glucose 105.0 mg/dl (70-99(Fasting)); Lipase 19.0 U/L (11-82); Magnesium 2.0 mg/dl (1.7-2.4); Potassium 4.2 mmol/L (3.5-5.1); Sodium 137.0 mmol/L (136-145); Total Protein 7.0 gm/dl (6.0-8.3)
--- NOTE | 2025-05-31 16:38 | CT Scan Report ---
EXAM: CT head without contrast. History: Altered mental status. Weakness. Comparison: None. Technique: Using multidetector thin collimation helical acquisition technique, axial, coronal and sagittal CT images from the skull base to the vertex were obtained without intravenous contrast. Dose reduction techniques were achieved by using automatic exposure control and/or adjustment of mA and/or kV according to patient size and/or use of iterative reconstruction technique. Findings: [employer] film demonstrates no acute abnormality. Brain windows demonstrate ventricles and sulci to be within normal limits for patient's age. No hemorrhage, mass or acute large territorial infarct. No midline shift. Basal cisterns are patent. Subtle areas of decreased attenuation gonzalez radiata and centrum semiovale. No appreciated mass effect. Orbital soft tissues are within normal limits. Bone windows demonstrate skull base and bony calvarium to be within normal limits. Impression: Mild nonspecific regions of decreased white matter attenuation likely representing mild sequela from chronic microvascular disease. MRI would be helpful for further characterization. Otherwise no appreciated acute process. Electronically signed by James Rodas 05-31-2025 4:36 PM
[2025-05-31 16:40] LABS: INR 1.9 (0.9-1.1); Prothrombin Time 19.1 Seconds (9.0-12.0)
[2025-05-31 16:41] LABS: Thyroid Stimulating Hormone 0.904 uIu/ml (0.300-4.500)
[2025-05-31 17:06] LABS: Chlamydia pneumoniae PCR Not Detected (NotDetected); Coronavirus 229E PCR Not Detected (NotDetected); Coronavirus CoV-2 (COVID19)PCR Not Detected (NotDetected); Coronavirus HKU1 PCR Not Detected (NotDetected); Coronavirus NL63 PCR Not Detected (NotDetected); Coronavirus OC43PCR Not Detected (NotDetected); Human Metapneumovirus PCR Not Detected (NotDetected); Parainfluenza Virus 1 PCR Not Detected (NotDetected); Parainfluenza Virus 2 PCR Not Detected (NotDetected); Parainfluenza Virus 3 PCR Not Detected (NotDetected); Parainfluenza Virus 4 PCR Not Detected (NotDetected); Respiratory Syncytial VirusPCR Not Detected (NotDetected); Rhinovirus/Enterovirus PCR Not Detected (NotDetected)
[2025-05-31 18:04] LABS: Appearance Urine Clear (Clear); Bacteria Urine Automated None Seen (None Seen); Cast Urine Automated 0-2 /lpf (0-2); Epithelial Cell Urine Auto 0-2 /hpf (0-2); Glucose Urine UA Negative (Negative); RBC Urine Automated 0-2 /hpf (0-2); WBC Urine Automated 0-5 /hpf (0-5)
--- NOTE | 2025-05-31 18:51 | Emergency Department Note ---
Impression & Plan Generalized weakness, Acute confusion, Dehydration ED Provider Note ED Provider Note NAME: ADALI VENTURA AGE:89 SEX: Female : 1935 ARRIVES VIA: EMS INFORMANT: Patient ED PROVIDER(s): Alisha Moura DO CHIEF COMPLAINT: confusion, weakness HPI: This is an 89-year-old female who presents the emergency department due to concern from family for increased weakness, fatigue, and altered mental status. EMS reports family stated they began noticing symptoms yesterday and they seem worse today. They states she has been sleeping for more than usual. They state family denied any recent trauma or injury and no recent illness. On arrival here patient denies headaches, chest pain, abdominal pain, or difficulty breathing. She denies any change in bowel or bladder function. She states she does not know why she was here because she "feels fine". Patient does live with her family at home. PAST MEDICAL HISTORY:See Below PAST SURGICAL HISTORY:See Below FAMILY HISTORY:See Below SOCIAL HISTORY:See Below HOME MEDICATIONS:See Below ALLERGIES:See Below VITALS:See Below PHYSICAL EXAMINATION: GENERAL: alert, well appearing, well nourished, no distress, non-toxic EYE EXAM: normal conjunctiva, PERRL and EOM's grossly intact OROPHARYNX: no exudate, no erythema, lips, buccal mucosa, and tongue normal and mucous membranes are dry NECK: supple, no nuchal rigidity, no adenopathy, non-tender LUNGS: Clear to auscultation. Normal chest wall mechanics, no w/r/r HEART: no murmurs, S1 normal and S2 normal ABDOMEN: abdomen soft, non-tender, normo-active bowel sounds, no masses, no rebound or guarding. SKIN: no rashes, petechiae, orbruising UPPER EXTREMITIES: upper extremities are grossly normal. FROM, nml pulses b/l. LOWER EXTREMITIES: No pitting edema. FROM, nml pulses b/l. NEURO EXAM: Oriented to self and place, cranial nerves II-XII grossly intact, normal speech, no facial droop,nogross weakness of arms, no gross weakness of legs. Gross sensation intact. No ataxia. Vital Signs: reviewed and remarkable Differential Diagnosis: dehydration, stroke, anemia, hypoglycemia, hyponatremia, hypernatremia, urinary tract infection, pneumonia, bronchitis, sepsis, gastroenteritis, additional abdominal pathology, metabolic abnormalities, as well as others were considered MEDICAL DECISION MAKING: This is an 89 yo female who presents via EMS due to concern by family for confusion and increased weakness/somnolence. No trauma reported and none noted on exam. She was afebrile and VS stable. Labs drawn and sent, IV established, EKG and CXR performed and interpreted at bedside, and patient placed on telemetry. She was sent for CT head additionally. Urine collected and sent for analysis. Nasal swab performed to evaluate for viral respiratory illness. Patient appeared clinically dehydrated and was started on IVF. Labs and imaging reassuring. Upon arrival of patient's son at bedside, we discussed their concerns and patient's symptoms over the last 2 days. He states she does have a hx of UTI's. UA here not suggestive of UTI however out of an abundance of precaution and given lack of other etiology, a urine culture was added and she was given IV rocephin. Given significant weakness he was concerned for her safety and it was felt patient needed inpatient evaluation and mgmt at this time. Case discussed with hosptialist team for further mgmt. Consultation(s): 1924: Discussed with Dr. Owen, [facility] hospitalist team, for additional evaluation and mgmt. ER Treatment Provided: See below 1845: Discussed all results and options for disposition with son at bedside. Some concern given extensive weakness about her ability to get around at home even with assistance. He is also concerned occult evolving urinary tract infection which she has had previously. Given her level of fatigue and somnolence she is also concern for her ability to stay hydrated at home as well. We did discuss CODE STATUS. He states patient would want chest compressions, defibrillation, and medications however would not want to be intubated or on life support. He states this has been discussed amongst him and his siblings and conversation with her mother although there is no official documentation. Diagnostics Interpreted By Me: -ECG: a.fib 84, nml axis, nml intervals, no acute ST/T wave changes -Cardiac Monitoring: An order was placed for continuous cardiac monitoring. The monitor shows a rate of 80 with a.fib rhythm. -Laboratory studies: As stated above and show below. -Imaging studies: ct head: no ich Triage Nursing Note Reviewed Prior/Outside Records Reviewed Past Med/Surg History Problem List Dehydration (Acute) Acute confusion (Acute) Generalized weakness (Acute) Tachy-jean pierre syndrome Hypotension COVID-19 (Acute) Generalized weakness (Acute) Sacroiliitis Presence of cardiac pacemaker Hypertension Dyslipidemia Atrial fibrillation Gastritis (Acute) Gastritis (Acute) Gastritis (Acute) Late effects of poliomyelitis (Chronic Unknown) Vertigo (Acute) Encounter for pre-operative examination Medical History Osteoporosis Hyperlipidemia Polio TODDLER Hearing deficit hearing aids Atrial fibrillation DX [address] rizo Pacemaker medtronic 2001 > [facility] > FOR A-FIB, LAST CHECKED fall FOLLOWS WITH [facility] G[facility]IN[facility] FOR CARDIOLOGY Hypertension Surgical History History of total hip arthroplasty RIGHT History of total shoulder replacement RIGHT History of colonoscopy History of tooth extraction Social History Smoking Status: Never smoker Second Hand Exposure: No; Do You Dip or Chew Tobacco: No; Hx Alcohol Use: No Hx Substance Use: No Preferred Language: Mongolian Communication Ability: Effective Visual Impairment: No Limitations String Laster Required: Voice Beliefs That Will Affect Care: None Current Living Situation: Family Feels Safe at Home: Yes Safety Concerns: Feels Safe At This Time Assistive Devices: Walker Allergies Allergies Allergy/AdvReac Type Severity Reaction Status Date / Time No Known Allergies Allergy Verified 04/24/25 12:51 Home Meds Home Medications Medication Instructions Recorded Confirmed alendronate 70 mg tablet 70 mg PO WEEKLY 04/23/19 05/31/25 calcium carbonate (Calcium 600) 600 mg PO BID 07/20/19 05/31/25 paroxetine HCl 20 mg tablet 20 mg PO DAILY 05/28/20 05/31/25 Previous Rx's Medication Instructions Recorded guaifenesin 100 mg/5 mL oral liquid 200 mg (10 mL) PO Q6H PRN cough 05/16/24 #1,000 mL polyethylene glycol 3350 17 gram 17 g PO DAILY PRN constipation #14 05/16/24 oral powder packet (Miralax) ea rivaroxaban 20 mg tablet 20 mg PO QAM #90 tabs 12/10/24 simvastatin 10 mg tablet 10 mg PO 1XD #90 tabs 12/10/24 metoprolol succinate 50 mg 50 mg PO DAILY #90 tabs 02/28/25 tablet,extended release 24 hr cyanocobalamin (vitamin B-12) 1,000 mcg PO DAILY #30 caps 06/02/25 1,000 mcg capsule lisinopril 10 mg tablet 10 mg PO DAILY #30 tabs 06/02/25 Results & Data (ED) Vital Signs Vital Signs - 24 hr 05/31/25 15:30 05/31/25 15:58 05/31/25 17:31 Temperature 36.5 C Temperature Source Oral Pulse Rate 81 Pulse Rate [Apical] 65 85 Pulse Rhythm Regular Pulse Rhythm [Apical] Regular Pulse Strength Normal Pulse Strength [Apical] Normal Respiratory Rate 19 18 18 Respiratory Effort / Characteristics Non-Labored Spontaneous Non-Labored Spontaneous Non-Labored Spontaneous Respiratory Depth Normal Normal Normal Respiratory Pattern Regular Regular Blood Pressure 123/72 Blood Pressure [Right Arm] 123/72 113/60 Blood Pressure Mean 89 Blood Pressure Mean [Right Arm] 89 77 Pulse Oximetry 99 93 96 Oxygen Delivery Method Room Air Room Air Room Air Sepsis Recent Fever Within 48 Hours No Sepsis New/Unexplained Change in Mental Status Yes Sepsis Action Taken by Nursing No Action Required 05/31/25 18:42 Temperature Temperature Source Pulse Rate 88 Pulse Rate [Apical] Pulse Rhythm Pulse Rhythm [Apical] Pulse Strength Pulse Strength [Apical] Respiratory Rate Respiratory Effort / Characteristics Respiratory Depth Respiratory Pattern Blood Pressure Blood Pressure [Right Arm] Blood Pressure Mean Blood Pressure Mean [Right Arm] Pulse Oximetry Oxygen Delivery Method Sepsis Recent Fever Within 48 Hours Sepsis New/Unexplained Change in Mental Status Sepsis Action Taken by Nursing Laboratory Data 06/02/25 07:00 06/02/25 07:00 Lab Results 05/31/25 Range/Units 15:50 WBC 5.94 (4.8-10.8) K/ul RBC 4.38 (4.20-5.40) M/uL Hgb 14.2 (12.0-16.0) g/dl Hct 41.8 (37.0-47.0) % MCV 95.4 (80.0-100.0) fL MCH 32.4 (25.0-34.0) pg MCHC 34.0 (32.0-36.0) g/dL RDW Std Deviation 45.0 (36.4-46.3) fL RDW Coeff of Anibal 12.8 (11.5-14.5) % Plt Count 141 (130-400) K/uL MPV 9.0 L (9.4-12.4) fL Immature Gran % (Auto) 0.2 % Neut % (Auto) 64.8 % Lymph % (Auto) 24.7 % [place] % (Auto) 7.6 % Eos % (Auto) 2.0 % Baso % (Auto) 0.7 % Neut # (Auto) 3.85 (1.40-6.50) K/uL Lymph # (Auto) 1.47 (1.20-3.40) K/uL [place] # (Auto) 0.45 (0.11-0.59) K/uL Eos # (Auto) 0.12 (0.00-0.50) K/uL Baso # (Auto) 0.04 (0.00-0.20) K/uL Immature Gran # (Auto) 0.01 (0.01-0.20) K/uL PT 19.1 H (9.0-12.0) Seconds INR 1.9 H (0.9-1.1) Sodium 137 (136-145) mmol/L Potassium 4.2 (3.5-5.1) mmol/L Chloride 101 (98-107) mmol/L Carbon Dioxide 29 (21-32) mmol/L Anion Gap 7 (3-11) BUN 26 H (6-23) mg/dl Creatinine 0.69 (0.6-1.2) mg/dl Est Cr Clr Drug Dosing 57.0 ml/min eGFR 83.94 BUN/Creatinine Ratio 37.7 H (10-20) Glucose 105 H (70-99(Fasting)) mg/dl Calcium 10.1 (8.6-10.3) mg/dl Phosphorus 3.9 (2.5-4.9) mg/dl Magnesium 2.0 (1.7-2.4) mg/dl Total Bilirubin 1.1 H (0.2-1.0) mg/dl AST 23 (13-39) U/L ALT 15 (7-52) U/L Alkaline Phosphatase 46 (34-104) U/L Total Creatine Kinase 25 L (26-192) U/L Troponin I High Sens 6.8 (0-14) pg/ml Total Protein 7.0 (6.0-8.3) gm/dl Albumin 4.0 (3.4-5.0) gm/dl Globulin 3.0 (2.5-4.0) gm/dl Albumin/Globulin Ratio 1.3 (0.9-2) Lipase 19 (11-82) U/L Vitamin B12 265 (180-914) pg/ml Procalcitonin < 0.02 (0-0.5) ng/ml TSH 0.904 (0.300-4.500) uIu/ml Administered Medications Discontinued Medications Alendronate Sodium (Alendronate Sodium 70 Mg Tab) 70 mg PO Schaeffer@0600 SHANTA Stop: 07/02/25 05:59 Last Admin: 06/02/25 05:48 Dose: 70 mg Documented By: SUN Calcium Carbonate (Calcium Carbonate 1250mg Tab) 1 tab PO BID SHANTA Stop: 07/01/25 08:59 Last Admin: 06/02/25 08:27 Dose: 1 tab Documented By: Admin: 06/01/25 20:31 Dose: 1 tab Documented By: Admin: 06/01/25 08:06 Dose: 1 tab Documented By: JOHN Sodium Chloride (Nss) 1,000 mls @ 125 mls/hr IV .Q8H SHANTA Stop: 06/01/25 18:26 Last Infusion: 06/01/25 16:49 Dose: Infused Documented By: Admin: 06/01/25 08:49 Dose: 125 mls/hr Documented By: Infusion: 06/01/25 08:49 Dose: Infused Documented By: Admin: 06/01/25 03:49 Dose: 125 mls/hr Documented By: Infusion: 06/01/25 02:36 Dose: Infused Documented By: Infusion: 05/31/25 23:59 Dose: 125 mls/hr Documented By: Infusion: 05/31/25 22:27 Dose: 0 mls/hr Documented By: Admin: 05/31/25 19:05 Dose: 200 mls/hr Documented By: emi Ceftriaxone Sodium (Rocephin) 2,000 mg in 50 mls @ 100 mls/hr IV NOW STA Stop: 05/31/25 19:10 Last Infusion: 05/31/25 19:35 Dose: Infused Documented By: Admin: 05/31/25 19:05 Dose: 100 mls/hr Documented By: emi Sodium Chloride (Nss) 1,000 mls @ 999 mls/hr IV .Q1H1M ONE Stop: 05/31/25 23:03 Last Infusion: 05/31/25 23:19 Dose: Infused Documented By: Admin: 05/31/25 22:18 Dose: 999 mls/hr Documented By: KENNY Sodium Chloride (Nss) 500 mls @ 999 mls/hr IV .Q31M ONE Stop: 05/31/25 23:37 Last Infusion: 05/31/25 23:38 Dose: Infused Documented By: Admin: 05/31/25 23:07 Dose: 999 mls/hr Documented By: KENNY Piperacillin Sod/Tazobactam Sod (Zosyn) 4.5 gm in 100 mls @ 25 mls/hr IV Q8H SHANTA; Protocol Stop: 06/03/25 15:59 Last Admin: 06/02/25 08:27 Dose: 25 mls/hr Documented By: Infusion: 06/02/25 03:01 Dose: Infused Documented By: Admin: 06/01/25 23:01 Dose: 25 mls/hr Documented By: Infusion: 06/01/25 21:31 Dose: Infused Documented By: Admin: 06/01/25 17:31 Dose: 25 mls/hr Documented By: JOHN Sodium Chloride (Nss) 500 mls @ 999 mls/hr IV .Q31M ONE Stop: 06/01/25 08:05 Last Infusion: 06/01/25 08:50 Dose: Infused Documented By: Admin: 06/01/25 08:10 Dose: 999 mls/hr Documented By: JOHN Piperacillin Sod/Tazobactam Sod (Zosyn) 4.5 gm in 100 mls @ 200 mls/hr IV 0800 ONE; Protocol Stop: 06/01/25 08:29 Last Infusion: 06/01/25 11:42 Dose: Infused Documented By: Admin: 06/01/25 11:12 Dose: 200 mls/hr Documented By: JOHN Influenza Virus Vacc Triv Types A&B (Influenza Vacc [id number](65y+)/Pf (Iiv3) 0.5ml Syr) 0.5 ml IM .ONCE ONE Stop: 06/01/25 02:20 Last Admin: 06/02/25 10:59 Dose: 0.5 ml Documented By: JOHN Insulin Aspart (Insulin Aspart Per Unit Charge) 0 units SC ACHS SHANTA Stop: 07/01/25 01:00 Last Admin: 06/02/25 08:29 Dose: Not Given Documented By: Admin: 06/01/25 20:30 Dose: Not Given Documented By: Admin: 06/01/25 17:31 Dose: 1,000 units Documented By: JOHN Co-signed By: JESSICA Admin: 06/01/25 12:27 Dose: 2 units Documented By: EDE Co-signed By: JESSICA Admin: 06/01/25 08:05 Dose: Not Given Documented By: Admin: 06/01/25 02:24 Dose: Not Given Documented By: SUN Metoprolol Succinate (Metoprolol Succ 50mg Ext Rel Tab) 50 mg PO DAILY SHANTA Stop: 07/01/25 08:59 Last Admin: 06/02/25 08:26 Dose: 50 mg Documented By: Admin: 06/01/25 08:06 Dose: Not Given Documented By: JOHN Paroxetine HCl (Paroxetine Hcl 20 Mg Tab) 20 mg PO DAILY SHANTA Stop: 07/01/25 08:59 Last Admin: 06/02/25 08:27 Dose: 20 mg Documented By: Admin: 06/01/25 08:06 Dose: 20 mg Documented By: JOHN Rivaroxaban (Rivaroxaban 20 Mg Tab) 20 mg PO QDD SHANTA Stop: 07/01/25 16:29 Last Admin: 06/01/25 17:33 Dose: 20 mg Documented By: JOHN Simvastatin (Simvastatin 10 Mg Tab) 10 mg PO PM SHANTA Stop: 07/01/25 20:59 Last Admin: 06/01/25 20:31 Dose: 10 mg Documented By: SUN Imaging Data Radiologist's Impression: Chest X-Ray 05/31/25 15:47 Clinical History: Weakness Technique: A frontal view of the chest was obtained Comparison is made to the prior examination dated 05/07/2024 Findings: There are no confluent pulmonary infiltrates. The heart size is within normal limits. No pleural effusion or pneumothorax is seen. There is no definite pulmonary nodule. No fracture is noted. There is a left chest wall pacemaker device. There is a right shoulder arthroplasty Impression: No active disease Electronically signed by Suresh Villalobos 05-31-2025 4:[address] 05/31/25 15:47 EXAM: CT head without contrast. History: Altered mental status. Weakness. Comparison: None. Technique: Using multidetector thin collimation helical acquisition technique, axial, coronal and sagittal CT images from the skull base to the vertex were obtained without intravenous contrast. Dose reduction techniques were achieved by using automatic exposure control and/or adjustment of mA and/or kV according to patient size and/or use of iterative reconstruction technique. Findings: Street Sweeper film demonstrates no acute abnormality. Brain windows demonstrate ventricles and sulci to be within normal limits for patient's age. No hemorrhage, mass or acute large territorial infarct. No midline shift. Basal cisterns are patent. Subtle areas of decreased attenuation gonzalez radiata and centrum semiovale. No appreciated mass effect. Orbital soft tissues are within normal limits. Bone windows demonstrate skull base and bony calvarium to be within normal limits. Impression: Mild nonspecific regions of decreased white matter attenuation likely representing mild sequela from chronic microvascular disease. MRI would be helpful for further characterization. Otherwise no appreciated acute process. Electronically signed by James Rodas 05-31-2025 4:36 PM Discharge Plan Visit Data Chief Complaint: Lethargic ED Provider: Alisha Moura Discharge Problem: Generalized weakness, Acute confusion, Dehydration Patient Disposition: Admitted As Inpatient Condition: Fair Discharge Instructions Interventions: ED Discharge Assessment Last Done: 06/01/25 01:01
[2025-05-31] MEDS: cefTRIAXone SODIUM 2,000 MG/50 ML BAG IV STA (19:05)
[2025-05-31] MEDS: SODIUM CHLORIDE 0.9% 1,000 ML IV SCH (19:05)
--- NOTE | 2025-05-31 19:25 | History & Physical Report ---
Date of Service May 31, 2025 Assessment & Plan (1) Dehydration: (2) Acute confusion: (3) Generalized weakness: Plan Altered mental status-- unclear etiology DD: ? Dehydration/hypotension, hypoglycemia, UTI Dehydration Rule out UTI No signs of sepsis --BioFire negative --CT head:Mild nonspecific regions of decreased white matter attenuation likely representing mild sequela from chronic microvascular disease. MRI would be helpful for further characterization. Otherwise no appreciated acute process. --Chest x-ray showed no acute process --Urine culture pending Empirically started on IV Rocephin Continue IV fluids Will obtain TSH, VBG, ammonia, B12 levels, phosphorus level, CK level Will obtain MRI brain--unsure if pacer compatible. If incompatible, will repeat CT head tomorrow Generalized weakness Poor appetite/oral intake PT OT, fall precautions Gentle IV fluids DM Type II: Diet controlled Update HbA1c ISS while hospitalized Monitor blood glucose during Atrial fibrillation SSS S/P pacemaker Continue metoprolol On Xarelto for anticoagulation Hyperlipidemia Continue simvastatin Hypertension Hypotensive while in ED Hold lisinopril, HCTZ Continue metoprolol with holding parameters Monitor blood pressure close Anxiety disorder Continue paroxetine Polio syndrome Chronic DVT Px: Xarelto CODE STATUS DNI only History of Present Illness Chief Complaint: Altered mental status Primary Care Provider: Gisella Quezada DO Patient is an 89-year-old female with history of SSS S/P pacemaker, polio syndrome, diabetes mellitus, hyperlipidemia, atrial fibrillation on chronic anticoagulation with Xarelto, COVID-19 infection, hyperlipidemia, hypertension, anxiety disorder and other medical problems presents with altered mental status. Patient is oriented during my encounter in the ED and was not sure why she was brought to the hospital. Most of the history is obtained from patient's son at bedside and also from ER staff and old records. Patient's son states that she has been having increased generalized weakness, fatigue and has been sleeping most of the day since yesterday. She was also noted to be confused. She has not been eating and drinking well for the past 2 days. She uses walker at baseline for ambulation. No known history of fall, trauma, fever, chills, recent change in medications. Denies any history of chest pain, dyspnea, dizziness, cough, loss of consciousness, headache, numbness, change in vision, nausea, vomiting, abdominal pain, blood in stools, diarrhea, dysuria, hematuria, recent travel, sick contact. Allergies Allergy/AdvReac Type Severity Reaction Status Date / Time No Known Allergies Allergy Verified 04/24/25 12:51 Home Medications Medication Instructions Recorded Confirmed Type alendronate 70 mg tablet 70 mg PO WEEKLY 04/23/19 05/31/25 History calcium carbonate (Calcium 600) 600 mg PO BID 07/20/19 05/31/25 History paroxetine HCl 20 mg tablet 20 mg PO DAILY 05/28/20 05/31/25 History lisinopril 20 1 tab PO QAM #90 tabs 01/19/22 05/31/25 Rx mg-hydrochlorothiazide 25 mg tablet guaifenesin 100 mg/5 mL oral liquid 200 mg (10 mL) PO Q6H PRN cough 05/16/24 05/31/25 Rx #1,000 mL polyethylene glycol 3350 17 gram 17 g PO DAILY PRN constipation #14 05/16/24 05/31/25 Rx oral powder packet (Miralax) ea potassium chloride 20 mEq 20 meq PO QAM #90 tabs 08/16/24 05/31/25 Rx tablet,extended release rivaroxaban 20 mg tablet 20 mg PO QAM #90 tabs 12/10/24 05/31/25 Rx simvastatin 10 mg tablet 10 mg PO 1XD #90 tabs 12/10/24 05/31/25 Rx metoprolol succinate 50 mg 50 mg PO DAILY #90 tabs 02/28/25 05/31/25 Rx tablet,extended release 24 hr Past Med/Surg History Problem List Dehydration (Acute) Acute confusion (Acute) Generalized weakness (Acute) Tachy-jean pierre syndrome Hypotension COVID-19 (Acute) Generalized weakness (Acute) Sacroiliitis Presence of cardiac pacemaker Hypertension Dyslipidemia Atrial fibrillation Gastritis (Acute) Gastritis (Acute) Gastritis (Acute) Late effects of poliomyelitis (Chronic Unknown) Vertigo (Acute) Encounter for pre-operative examination Medical History Osteoporosis Hyperlipidemia Polio TODDLER Hearing deficit hearing aids Atrial fibrillation DX [address] rizo Pacemaker medtronic 2001 > [facility] > FOR A-FIB, LAST CHECKED fall FOLLOWS WITH [facility] G[facility] FOR CARDIOLOGY Hypertension Surgical History History of total hip arthroplasty RIGHT History of total shoulder replacement RIGHT History of colonoscopy History of tooth extraction Social History Smoking Status: Never smoker Second Hand Exposure: No; Do You Dip or Chew Tobacco: No; Hx Alcohol Use: No Hx Substance Use: No Preferred Language: Congolese Communication Ability: Effective Visual Impairment: No Limitations Border Measurer And Cutter Required: No Beliefs That Will Affect Care: None Current Living Situation: Family Feels Safe at Home: Yes Assistive Devices: Walker Review of Systems Review of Systems: All systems reviewed & are unremarkable except as noted in Subjective Physical Exam Physical Exam: Physical Exam: Vitals signs as noted above General Appearance:Moderately built and nourished, no apparent distress, elderly, decreased hearing Head: normocephalic, Atraumatic Eyes: normal inspection, EOMI Neck: supple, Trachea midline Respiratory/Chest: Normal breath sounds, CTA, No accessory muscle use Cardiovascular: Irregularly irregular, No murmur, + pacer Abdomen/GI:Soft, Non tender, Bowel sounds present Extremities/Musculoskeletal:normal inspection, no edema, left lower extremity mildly atrophied, erythematous--chronic per family Neurologic/Psych:AAOX2, grossly no focal neurological deficits Skin: normal color, warm Results & Data Results & Data Vital Signs (Past 12 Hours) Vital Signs Temp Pulse Pulse Resp BP BP Pulse Ox 05/31/25 18:42 88 05/31/25 17:31 85 18 113/60 96 05/31/25 15:58 65 18 123/72 93 05/31/25 15:30 36.5 C 81 19 123/72 99 O2 Del Method 05/31/25 18:42 05/31/25 17:31 Room Air 05/31/25 15:58 Room Air 05/31/25 15:30 Room Air Laboratory Results Short CBC 05/31/25 Range/Units 15:50 WBC 5.94 (4.8-10.8) K/ul Hgb 14.2 (12.0-16.0) g/dl Hct 41.8 (37.0-47.0) % Plt Count 141 (130-400) K/uL BMP 05/31/25 15:50 Sodium 137 Potassium 4.2 Chloride 101 Carbon Dioxide 29 BUN 26 H Creatinine 0.69 Glucose 105 H Calcium 10.1 Cardiac Enzymes 05/31/25 Range/Units 15:50 Total Creatine Kinase 25 L (26-192) U/L Liver Function 05/31/25 Range/Units 15:50 Total Bilirubin 1.1 H (0.2-1.0) mg/dl AST 23 (13-39) U/L ALT 15 (7-52) U/L Alkaline Phosphatase 46 (34-104) U/L Albumin 4.0 (3.4-5.0) gm/dl Urine 05/31/25 Range/Units Unknown Urine Color Yellow Urine Appearance Clear (Clear) Urine pH 8.5 H (4.5-7.5) Ur Specific [place] 1.008 (1.000-1.030) Urine Protein Negative (Negative) Urine Glucose (UA) Negative (Negative) Diagnostic Findings --CT Head:Mild nonspecific regions of decreased white matter attenuation likely representing mild sequela from chronic microvascular disease. MRI would be helpful for further characterization. Otherwise no appreciated acute process. --CXR:No active disease Medications Administered Home Medications Medication Instructions Recorded Confirmed alendronate 70 mg tablet 70 mg PO WEEKLY 04/23/19 05/31/25 calcium carbonate (Calcium 600) 600 mg PO BID 07/20/19 05/31/25 paroxetine HCl 20 mg tablet 20 mg PO DAILY 05/28/20 05/31/25 Previous Rx's Medication Instructions Recorded lisinopril 20 1 tab PO QAM #90 tabs 01/19/22 mg-hydrochlorothiazide 25 mg tablet guaifenesin 100 mg/5 mL oral liquid 200 mg (10 mL) PO Q6H PRN cough 05/16/24 #1,000 mL polyethylene glycol 3350 17 gram 17 g PO DAILY PRN constipation #14 05/16/24 oral powder packet (Miralax) ea potassium chloride 20 mEq 20 meq PO QAM #90 tabs 08/16/24 tablet,extended release rivaroxaban 20 mg tablet 20 mg PO QAM #90 tabs 12/10/24 simvastatin 10 mg tablet 10 mg PO 1XD #90 tabs 12/10/24 metoprolol succinate 50 mg 50 mg PO DAILY #90 tabs 02/28/25 tablet,extended release 24 hr ECG Additional Comments: --EKG: Atrial fibrillation, nonspecific ST-T wave abnormality. QTc 432. Next
[2025-05-31 20:31] LABS: Creatine Kinase 25.0 U/L (26-192)
--- NOTE | 2025-05-31 21:26 | Electrocardiogram Report ---
Test Reason : Blood Pressure : */* mmHG Vent. Rate : 84 BPM Atrial Rate : * BPM P-R Int : * ms QRS Dur : 80 ms QT Int : 366 ms P-R-T Axes : * -25 215 degrees QTcB Int : 432 ms Atrial fibrillation Nonspecific ST and T wave abnormality Abnormal ECG When compared with ECG of 08-May-2024 04:48, Ventricular paced complexes are no longer present Confirmed by Leno Carbone ([id number]) on 05/31/2025 9:26:21 PM Referred By: Confirmed By: Leno Carbone
[2025-05-31] MEDS: SODIUM CHLORIDE 0.9% 1,000 ML IV ONE (22:18)
[2025-05-31] MEDS: SODIUM CHLORIDE 0.9% 500 ML IV ONE (23:07)
[2025-06-01 00:36] LABS: Base Excess VBG 0.3 mEq/L; HCO3 VBG 25 mmol/L; Oxygen Saturation VBG 97.5 %; PCO2 VBG 38 mmHg (38-50); PO2 VBG 82 mmHg; pH VBG 7.42 (7.36-7.41)
[2025-06-01] MEDS ORDERED: CARBOHYDRATES FOR HYPOGLYCEMIA PO PRN (01:01)
[2025-06-01] MEDS ORDERED: GLUCOSE 40% GEL 15 GM TUBE PO PRN (01:01)
[2025-06-01] MEDS ORDERED: GLUCAGON FOR INJ 1 MG VIAL SQ PRN (01:01)
[2025-06-01] MEDS ORDERED: POLYETHYLENE (MIRALAX) 17 GM PACK PO PRN (01:01)
[2025-06-01] MEDS ORDERED: ACETAMINOPHEN 325 MG TAB PO PRN (01:01)
[2025-06-01] MEDS ORDERED: GLUCOSE 10 TAB/TUBE PO PRN (01:01)
[2025-06-01] MEDS ORDERED: DEXTROSE 50% 50 ML SYRINGE IV PRN (01:01)
[2025-06-01] MEDS ORDERED: ONDANSETRON INJ 2 MG/ML 2 ML VIAL IV PRN (01:01)
[2025-06-01] MEDS: INSULIN ASPART PER UNIT CHARGE SC SCH (02:24)
[2025-06-01 07:20] LABS: Hematocrit (blood only) 35.6 % (37.0-47.0); Hemoglobin 11.9 g/dl (12.0-16.0); Mean Corpuscular Hemoglobin 32.3 pg (25.0-34.0); Mean Corpuscular Volume 96.7 fL (80.0-100.0); Platelet Count 116 K/uL (130-400); RDW Standard Deviation 46.8 fL (36.4-46.3); Red Blood Count 3.68 M/uL (4.20-5.40); White Blood Count 4.81 K/ul (4.8-10.8)
[2025-06-01 07:49] LABS: Anion Gap 7 (3-11); Blood Urea Nitrogen 21 mg/dl (6-23); Calcium 8.6 mg/dl (8.6-10.3); Carbon Dioxide 26 mmol/L (21-32); Chloride 108 mmol/L (98-107); Creatinine Clr Calc Pharmacy 59.6 ml/min; Glucose 85 mg/dl (70-99(Fasting)); Magnesium 1.8 mg/dl (1.7-2.4); Sodium 141 mmol/L (136-145)
[2025-06-01 07:59] LABS: Hemoglobin A1C 6.1 % (4.5-5.6)
[2025-06-01] MEDS: METOPROLOL SUCC 50MG EXT REL TAB PO SCH (08:06)
[2025-06-01] MEDS: CALCIUM CARBONATE 1250MG TAB PO SCH (08:06)
[2025-06-01] MEDS: SODIUM CHLORIDE 0.9% 500 ML IV ONE (08:10)
[2025-06-01] MEDS ORDERED: cefTRIAXone SODIUM 1,000 MG/50 ML BAG IV SCH (10:00)
--- NOTE | 2025-06-01 10:48 | Hospitalist Progress Note ---
Date of Service June 01, 2025 Assessment & Plan (1) Dehydration: (2) Acute confusion: (3) Generalized weakness: Plan Metabolic encephalopathy Possible UTI Patient presented to the hospital with concern of altered mental status and lethargy BioFire negative Chest x-ray read as no acute finding Will continue on empiric antibiotics; follow-up on urine and blood culture stop iv fluids PT OT evaluation Hold antihypertensive as her blood pressure continues to be on lower side Generalized weakness Poor appetite/oral intake PT OT, fall precautions DM Type II: Diet controlled Hba1c of 6.1% ISS while hospitalized Monitor blood glucose during Atrial fibrillation SSS S/P pacemaker Continue metoprolol On Xarelto for anticoagulation Hyperlipidemia Continue simvastatin Hypertension Hold lisinopril, HCTZ Continue metoprolol with holding parameters Monitor blood pressure close iv fluid boluses as needed Anxiety disorder Continue paroxetine Polio syndrome Chronic DVT Px: Xarelto CODE STATUS DNI only Please note the above document was generated using voice recognition software. It may contain grammatical, syntax or spelling errors. Any formal questions or concerns about the content, text or information contained within the body of this dictation should be directly addressed to the provider for clarification Admission and Anticipated Discharge Date Admission Date: May 31, 2025 Subjective Patient seen and examined at bedside. She is sitting up on the bed comfortably; denies any pain or discomfort. She denies any dizziness or altered mentation. She has been afebrile overnight. Blood pressure on the lower side today morning. Review of Systems Review of Systems: All systems reviewed & are unremarkable except as noted in Subjective Physical Exam Physical Exam: Physical Exam: Vitals signs as noted above General Appearance:Moderately built and nourished, no apparent distress, elderly, decreased hearing Respiratory/Chest: Normal breath sounds, CTA, No accessory muscle use Cardiovascular: Irregularly irregular, No murmur, + pacer Abdomen/GI:Soft, Non tender, Bowel sounds present Extremities/Musculoskeletal:normal inspection, no edema, left lower extremity mildly atrophied, erythematous--chronic per family Neurologic/Psych:AAOX2, grossly no focal neurological deficits Skin: normal color, warm Results & Data Results & Data Vital Signs (Past 12 Hours) Vital Signs Temp Pulse Pulse Resp BP Pulse Ox Pulse Ox 06/01/25 08:52 97/63 L 06/01/25 08:21 36.4 C L 88 16 102/54 L 94 06/01/25 02:00 36.4 C L 79 16 98/63 L 98 06/01/25 02:00 98 06/01/25 02:00 36.4 C L 79 16 98/63 L 98 06/01/25 01:59 65 O2 Del Method O2 Del Method 06/01/25 08:52 06/01/25 08:21 Room Air 06/01/25 02:00 Room Air 06/01/25 02:00 Room Air 06/01/25 02:00 Room Air 06/01/25 01:59
[2025-06-01] MEDS: 4.5GM X1 IV ONE (11:12)
[2025-06-01] MEDS ORDERED: NYSTATIN SUSP 500,000 U/5 ML UDC PO SCH (17:00)
[2025-06-01] MEDS: PIPERACILLIN/TAZOBACTAM 4.5 GM/100 ML BAG IV SCH (17:31)
[2025-06-01] MEDS: RIVAROXABAN 20 MG TAB PO SCH (17:33)
[2025-06-01] MEDS: SIMVASTATIN 10 MG TAB PO SCH (20:31)
[2025-06-02 04:24] VITALS: O2SAT 98
[2025-06-02] MEDS: ALENDRONATE SODIUM 70 MG TAB PO SCH (05:48)
[2025-06-02 07:23] LABS: Hematocrit (blood only) 34.9 % (37.0-47.0); Hemoglobin 11.7 g/dl (12.0-16.0); Immature Granulocytes # (auto) 0.02 K/uL (0.01-0.20); Immature Granulocytes % (auto) 0.5 %; Mean Corpuscular Hemoglobin 32.5 pg (25.0-34.0); Mean Corpuscular Volume 96.9 fL (80.0-100.0); Platelet Count 100 K/uL (130-400); RDW Standard Deviation 45.9 fL (36.4-46.3); Red Blood Count 3.60 M/uL (4.20-5.40); White Blood Count 4.37 K/ul (4.8-10.8)
[2025-06-02 07:39] VITALS: BP 145/81; RESP 16; TEMP 97.9
[2025-06-02 07:43] LABS: Anion Gap 7.0 (3-11); Blood Urea Nitrogen 16.0 mg/dl (6-23); Calcium 9.2 mg/dl (8.6-10.3); Carbon Dioxide 27.0 mmol/L (21-32); Chloride 108.0 mmol/L (98-107); Creatinine Clr Calc Pharmacy 61.4 ml/min; Glucose 97.0 mg/dl (70-99(Fasting)); Potassium 3.7 mmol/L (3.5-5.1); Sodium 142.0 mmol/L (136-145)
--- NOTE | 2025-06-02 10:36 | Discharge Summary ---
Date of Service June 02, 2025 Admission HPI Per Admitting Provider Patient is an 89-year-old female with history of SSS S/P pacemaker, polio syndrome, diabetes mellitus, hyperlipidemia, atrial fibrillation on chronic anticoagulation with Xarelto, COVID-19 infection, hyperlipidemia, hypertension, anxiety disorder and other medical problems presents with altered mental status. Patient is oriented during my encounter in the ED and was not sure why she was brought to the hospital. Most of the history is obtained from patient's son at bedside and also from ER staff and old records. Patient's son states that she has been having increased generalized weakness, fatigue and has been sleeping most of the day since yesterday. She was also noted to be confused. She has not been eating and drinking well for the past 2 days. She uses walker at baseline for ambulation. No known history of fall, trauma, fever, chills, recent change in medications. Denies any history of chest pain, dyspnea, dizziness, cough, loss of consciousness, headache, numbness, change in vision, nausea, vomiting, abdominal pain, blood in stools, diarrhea, dysuria, hematuria, recent travel, sick contact. Admission Exam Per Admitting Provider Physical Exam: Vitals signs as noted above General Appearance:Moderately built and nourished, no apparent distress, elderly, decreased hearing Head: normocephalic, Atraumatic Eyes: normal inspection, EOMI Neck: supple, Trachea midline Respiratory/Chest: Normal breath sounds, CTA, No accessory muscle use Cardiovascular: Irregularly irregular, No murmur, + pacer Abdomen/GI:Soft, Non tender, Bowel sounds present Extremities/Musculoskeletal:normal inspection, no edema, left lower extremity mildly atrophied, erythematous--chronic per family Neurologic/Psych:AAOX2, grossly no focal neurological deficits Skin: normal color, warm Principal Diagnosis Generalized weakness Hypotension Possible UTIruled out Discharge Exam Physical Exam: Vitals signs as noted above General Appearance:Moderately built and nourished, no apparent distress, elderly, decreased hearing Respiratory/Chest: Normal breath sounds, CTA, No accessory muscle use Cardiovascular: Irregularly irregular, No murmur, + pacer Abdomen/GI:Soft, Non tender, Bowel sounds present Extremities/Musculoskeletal:normal inspection, no edema, left lower extremity mildly atrophied, erythematous--chronic per family Neurologic/Psych:AAOX2, grossly no focal neurological deficits Skin: normal color, warm Discharge Data Allergies Allergy/AdvReac Type Severity Reaction Status Date / Time No Known Allergies Allergy Verified 04/24/25 12:51 Consultations 05/31/25 19:20 ED Decision to Admit Stat Ordered Studies 05/31/25 15:47 CT head/brain wo con Stat Hospital Course (1) Dehydration: (2) Acute confusion: (3) Generalized weakness: Plan Metabolic encephalopathy Possible UTI-rule out Hypotension Patient presented to the hospital with concern of altered mental status and lethargy BioFire negative Chest x-ray read as no acute finding On presentation to the hospital, she was hypotensive; other vitals were stable. Urinalysis was not suggestive of infection. Blood culture and urine culture were negative. Patient was given IV fluids during hospitalization with improvement in blood pressure and mentation. Lisinopril/hydrochlorothiazide was discontinued; patient was placed on lisinopril 10 mg once a day. At the time of the discharge, she was at baseline mentation, sitting up on the chair and ambulating. Patient discharged home with instructions to follow-up with PCP. Please note the above document was generated using voice recognition software. It may contain grammatical, syntax or spelling errors. Any formal questions or concerns about the content, text or information contained within the body of this dictation should be directly addressed to the provider for clarification Total Time Total Time Spent Total Time Spent (In Minutes): 34 Total Time Includes: Examination of the Patient, Discharge Planning, Medication Reconciliation, Communication With Other Providers and Other Discharge Plan Discharge Items Patient Disposition: Home - Self-Care Reason For Visit: ALTERED MENTAL STATUS, HYPOTENSION Discharge Diagnosis: Altered mental status, Activity: Resume your previous activity Non-emergency contact: Primary Care Provider Call non-emergency contact if: you have any medication questions and your symptoms worsen Follow-up/Referrals: Gisella Quezada DO [Primary Care Provider] - Diet: Regular Addtl Attending Provider Instructions: You were admitted to the hospital with Low blood pressure and lethargy. You underwent evaluation with blood culture, urine culture which were negative. One of your blood pressure pills ( Lisinopril-hctz) is stopped as it can cause dehydration and you are now place on Lisinopril 10mg once a day in replacement. Pending Studies at Discharge: No Stand-Alone Forms: [facility] [employer], Smoking Cessation Medications and DC Order Prescriptions: New lisinopril 10 mg tablet 10 mg PO DAILY Qty: 30 0RF cyanocobalamin (vitamin B-12) 1,000 mcg capsule 1,000 mcg PO DAILY Qty: 30 0RF Continued rivaroxaban 20 mg tablet 20 mg PO QAM Qty: 90 3RF simvastatin 10 mg tablet 10 mg PO 1XD Qty: 90 3RF metoprolol succinate 50 mg tablet extended release 24 hr 50 mg PO DAILY Qty: 90 3RF alendronate 70 mg tablet 70 mg PO WEEKLY Rx Instructions: TUESDAY paroxetine HCl 20 mg tablet 20 mg PO DAILY calcium carbonate [Calcium 600] 600 mg calcium (1,500 mg) Tablet 600 mg PO BID Patient Comments: 05/31- otc unable to verify polyethylene glycol 3350 [Miralax] 17 gram Powder In Packet 17 g PO DAILY PRN (Reason: constipation) Qty: 14 0RF Patient Comments: 05/31- otc unable to verify guaifenesin 100 mg/5 mL Liquid 200 mg PO Q6H PRN (Reason: cough) Qty: 1000 0RF Patient Comments: 05/31- otc unable to verify Discontinued lisinopril-hydrochlorothiazide 20-25 mg tablet 1 tab PO QAM Qty: 90 3RF potassium chloride 20 mEq tablet extended release 20 meq PO QAM Qty: 90 3RF Discharge Orders: Discharge Order (Routine); Ordered 06/02/25 Ordered By: Darren Patton Admission Data Admit Date/Time: 05/31/25 20:05 Attending Provider: Darren Patton Admit Provider: Uvaldo Owen Primary Care Provider: Gisella Quezada Other Providers: Uvaldo Owen
[2025-06-02] MEDS: INFLUENZA VACC TS2025-26(65y+)/PF (IIV3) 0.5mL Syr IM ONE (10:59)
[2025-06-02 11:10] VITALS: PULSE 86
== END 2025-06-02 11:27 | disposition home or self-care (01) | DRG 640 ==
LOC: ED 15:33 → EDINP 20:05 → 2S 06-01 01:01